=== PATIENT | male | born 1950 | race Caucasian/White ===

== ENCOUNTER 2017-12-22 12:04 | Inpatient (IN) | payer OTHER ==
[2017-12-22] MEDS ORDERED: fentaNYL 100 MCG/2 ML VIAL IVP STA (13:10)
--- NOTE | 2017-12-22 13:11 | XRAY Preliminary Report ---
Exam: XR ANKLE 3 VIEW LT IMPRESSION: 1. Trimalleolar fracture with 5 mm medial offset distal tibia relative to the talar dome. 2. Small ankle effusion. [facility] SITE ID: [id number]
--- NOTE | 2017-12-22 13:17 | XRAY Report ---
EXAM: LEFT ANKLE RADIOGRAPHY EXAM DATE: 12/22/2017 12:31 PM. CLINICAL HISTORY: Left ankle pain after fall today. COMPARISON: None. TECHNIQUE: 3 views. FINDINGS: Bones: Acute fracture coronal plane posterior tibial lip, 6 mm from the cortex. Acute transverse fracture medial malleolus, 12 mm inferior to the talar dome, 8 mm from the tip. Acute comminuted mildly displaced spiral fracture lateral malleolus, extending from the talar dome vasquez periorly by 4 cm. Suspect remote fracture in this region as well. Joints: Mild widening of the ankle mortise. Small effusion. 5 mm medial subluxation coronal plane distal tibia relative to the talar dome. Remote arthrodesis first MTP joint. Soft Tissues: Moderate diffuse edema. IMPRESSION: 1. Trimalleolar fracture with 5 mm medial offset distal tibia relative to the talar dome. 2. Small ankle effusion. [facility] Referring Provider Line: [phone] SITE ID: [id number]
--- NOTE | 2017-12-22 13:27 | ED Physician Documentation ---
PD HPI LOWER EXT INJURY - Stated complaint Stated Complaint: L ANKLE PX - Chief complaint Chief Complaint: Ext Problem - History obtained from History obtained from: Patient - History of Present Illness PD HPI LOW EXT INJURY LOCATION: Left, Ankle Type of injury: Twist Where injury occurred: Home Timing - onset: How many hours ago (2) Worsened by: Moving, Palpating Associated symptoms: Swelling Similar symptoms before: Has not had sx before - Additional information Additional information: The patient is a 67-year-old male who fell this morning when he had a "dizzy spell" twisting his left ankle. He denies any other injuries. He presents now with pain in his left ankle, with inability to bear weight. Past medical history significant for brain tumor resection in 2011. He believes that is the reason he sometimes has dizzy spells. He denies any chest pain, shortness of breath, headache, neck pain, or other injuries. He has not eaten since last night. He did drink a 10 ounce cooler after the falling episode this morning. Review of Systems Constitutional: denies: Fever Eyes: denies: Irritation Ears: denies: Tinnitus/ringing Nose: denies: Congestion Throat: denies: Sore throat Cardiac: denies: Chest pain / pressure Respiratory: denies: Dyspnea, Cough GI: denies: Abdominal Pain, Nausea, Vomiting : denies: Dysuria Skin: denies: Rash, Abrasion (s) Musculoskeletal: reports: Joint pain (left ankle). denies: Neck pain, Back pain Neurologic: denies: Focal weakness, Numbness, Head injury PD PAST MEDICAL HISTORY - Past Medical History Past Medical History: Yes Cardiovascular: Hypertension, High cholesterol Neuro: Peripheral neuropathy, Other GI: GERD HEENT: Chronic sinusitis Psych: Depression, Post traumatic stress disorder - Past Surgical History Past Surgical History: Yes Ortho: Rotator cuff repair Neuro: Other - Present Medications Home Medications: Ambulatory Orders Medication Instructions Recorded Confirmed Omeprazole [PriLOSEC] 20 mg PO QDAC 04/02/15 12/22/17 Prazosin [Minipress] 8 mg PO QPM 04/02/15 12/22/17 Quetiapine Fumarate 400 mg PO QPM 04/02/15 12/22/17 Sertraline HCl 200 mg PO DAILY 04/02/15 12/22/17 Gabapentin 900 mg PO TID 12/22/17 12/22/17 Multivitamin W/Minerals [Theragran 1 tab PO DAILY 12/22/17 12/22/17 M] Oxycodone HCl 5 mg PO Q4H PRN 12/22/17 12/22/17 Polyethylene Glycol 3350 [Miralax] 17 gm PO BID PRN 12/22/17 12/22/17 Propranolol HCl 20 mg PO TID PRN 12/22/17 12/22/17 Psyllium [Metamucil] 1 pkt PO DAILY 12/22/17 12/22/17 Simvastatin 20 mg PO QPM 12/22/17 12/22/17 Tamsulosin [Flomax] 0.4 mg PO QPM 12/22/17 12/22/17 - Allergies Allergies/Adverse Reactions: Allergies Allergy/AdvReac Type Severity Reaction Status Date / Time No Known Drug Allergies Allergy Verified 12/22/17 12:14 - Social History Does the pt smoke?: No Smoking Status: Never smoker Does the pt drink ETOH?: Yes Does the pt have substance abuse?: No - Immunizations Immunizations are current?: Yes - POLST Patient has POLST: No PD ED PE NORMAL - Vitals Vital signs reviewed: Yes (normal) - General General: Alert and oriented X 3, Well developed/nourished, Other (Overweight.) - HEENT HEENT: Atraumatic, Moist mucous membranes - Neck Neck: No bony TTP, No JVD - Cardiac Cardiac: RRR, No murmur - Respiratory Respiratory: No respiratory distress, Clear bilaterally, Other (No chest wall tenderness to palpation.) - Abdomen Abdomen: Soft, Non tender - Back Back: No CVA TTP, No spinal TTP - Derm Derm: No rash - Extremities Extremities: Other (There is swelling of the left ankle, with tenderness to palpation both medially and laterally. There is no calf tenderness to palpation. Distal neurovascular is intact.) - Neuro Neuro: Alert and oriented X 3, No motor deficit, No sensory deficit Results - Vitals Vitals: Vital Signs - 24 hr 12/22/17 12:10 Temperature 36.8 C Heart Rate 76 Respiratory 16 Rate Blood Pressure 102/61 O2 Saturation 95 Oxygen O2 Source Room air - Rads (name of study) left ankle Radiology: Prelim report reviewed, EMP read contemporaneously, See rad report ( Trimalleolar fracture with 5 mm medial offset distal tibia relative to the talar dome. Small ankle effusion.) Procedures - Splint (location) left ankle Splint applied by: Physician Type of splint: Fiberglass, Short leg, Posterior, Stirrup Other: Patient tolerated well, No complications, Neurovascular intact PD MEDICAL DECISION MAKING - ED course Complexity details: reviewed results, re-evaluated patient, considered differential, d/w patient, d/w family, d/w salesforce consultant ED course: The patient's presentation is significant for trimalleolar fracture of the left ankle. There is about 5 mm medial displacement of the distal tibia relative to the talar dome. Treatment in the emergency department included administration of fentanyl 50 mg IV. Posterior and sugar tong short leg splint was applied. I discussed his condition with Dr. Acosta, the Orthopedist, who plans operative intervention. She asked that the Hospitalist admit the patient. I discussed his condition with Dr. Barnes who accepts. - Sepsis Event Vital Signs: Vital Signs - 24 hr 12/22/17 12:10 Temperature 36.8 C Heart Rate 76 Respiratory 16 Rate Blood Pressure 102/61 O2 Saturation 95 Oxygen O2 Source Room air Departure - Departure Disposition: [facility] DC/Xfer Clinical Impression: Left trimalleolar fracture Condition: Stable Discharge Date/Time: 12/22/17 14:49
[2017-12-22] MEDS ORDERED: PROCHLORPERAZINE 10 MG/2 ML VIAL IVP PRN (13:49)
[2017-12-22] MEDS ORDERED: PROPRANOLOL 10 MG TABLET PO PRN ×2 (14:00→15:30)
--- NOTE | 2017-12-22 14:57 | HISTORY & PHYSICAL EXAMINATION ---
Chief Complaint - Chief Complaint Chief Complaint: Left ankle pain History of Present Illness - Admitted From Admitted From:: Home - History Obtained From History obtained from: Patient, ED Physician - History of Present Illness HPI Comment/Other: Mr. 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 Since that time he has had episodes of syncope once or twice a year. Today the patient was walking through a doorway when he lost consciousness and fell, catching his foot in the doorway. When he woke up he realized that his foot was in a lot of pain and appeared to be deformed. He came to the emergency department where he was diagnosed with a left malleolar fracture. He will be admitted to medical surgical bed in anticipation of orthopedic surgery with Dr. Acosta tomorrow. History - Past Medical History Cardiovascular: reports: Hypertension, High cholesterol Neuro: reports: Peripheral neuropathy, Other GI: reports: GERD HEENT: reports: Chronic sinusitis Psych: reports: Depression, Post traumatic stress disorder MRSA Hx?: No - Past Surgical History Ortho: reports: Rotator cuff repair Neuro: reports: Other (Patient underwent resection of a nonmalignant brain tumor in 2011. He has had episodes of syncope once or twice a year since then.) - Family & Social History Family History: Mother: (Father at age 94 following a fall in which she sustained a head injury), Cancer (Mother from pancreatic cancer) , Father: , Brother: Alive and Well (One brother with morbid obesity approximately 600 pounds) Family History Comment/Other: The patient's sister has chronic back pain Living arrangement: At home Living Situation: With spouse/s.o. - Substance History Use: Uses substance without health or social issues: Alcohol, Cannabis Abuse: Recurrent use of substance despite neg consequences: NONE Dependence: Experiences withdrawal or developed tolerances: NONE - POLST Patient has POLST: No POLST Status: Full Code Meds/Allgy - Home Medications Home Medications: Ambulatory Orders Medication Instructions Recorded Confirmed Omeprazole [PriLOSEC] 20 mg PO QDAC 04/02/15 12/22/17 Prazosin [Minipress] 8 mg PO QPM 04/02/15 12/22/17 Quetiapine Fumarate 400 mg PO QPM 04/02/15 12/22/17 Sertraline HCl 200 mg PO DAILY 04/02/15 12/22/17 Gabapentin 900 mg PO TID 12/22/17 12/22/17 Multivitamin W/Minerals [Theragran 1 tab PO DAILY 12/22/17 12/22/17 M] Oxycodone HCl 5 mg PO Q4H PRN 12/22/17 12/22/17 Polyethylene Glycol 3350 [Miralax] 17 gm PO BID PRN 12/22/17 12/22/17 Propranolol HCl 20 mg PO TID PRN 12/22/17 12/22/17 Psyllium [Metamucil] 1 pkt PO DAILY 12/22/17 12/22/17 Simvastatin 20 mg PO QPM 12/22/17 12/22/17 Tamsulosin [Flomax] 0.4 mg PO QPM 12/22/17 12/22/17 - Allergies Allergies/Adverse Reactions: Allergies Allergy/AdvReac Type Severity Reaction Status Date / Time No Known Drug Allergies Allergy Verified 12/22/17 12:14 Review of Systems - Constitutional Constitutional: denies: Fatigue, Fever, Chills, Malaise, Night sweats - Eyes Eyes: denies: Pain, Irritation, Amaurosis, Blurred vision, Field loss, Vision loss, Dipolpia - Ears, Nose & Throat Ears, Nose & Throat: denies: Ear pain, Tinnitus, Vertigo, Nasal pain, Nasal discharge, Nosebleeds - Cardiovascular Cariovascular: denies: Irregular heart rate, Palpitations, Chest pain, Edema, Syncope - Respiratory Respiratory: denies: Cough, Sputum production, Wheezing, Snoring, Hemoptysis, Orthopnea, SOB at rest, SOB with exertion - Gastrointestinal Gastrointestinal: denies: Abdominal pain, Abdominal distention, Constipation, Diarrhea, Rectal bleeding, Nausea, Vomiting - Genitourinary Genitourinary: denies: Dysuria, Frequency, Urgency, Hematuria - Musculoskeletal Musculoskeletal: reports: Limited range of motion, Joint swelling, Other (Left malleolar fracture). denies: Muscle pain, Back pain, Muscle aches - Integumentary Integumentary: denies: Rash, Pruritis, Lesions, Dryness - Neurological Neurological: denies: General weakness, Focal weakness, Headache, Dizziness - Psychiatric Psychiatric: denies: Depression, Anxiety, Suicidal, Hallucinations - Endocrine Endocrine: denies: Polyuria, Polydypsia, Polyphagia - Hematologic/Lymphatic Hematologic/Lymphatic: denies: Anemia, Bruising, Petechiae, Blood clots, Lymphadenopathy - All Other Systems All Other Systems: reports: Reviewed and negative Exam - Vital Signs Reviewed Vital Signs: Yes Vital Signs: Vital Signs x48h Temp Pulse Resp BP Pulse Ox 12/22/17 12:10 36.8 C 76 16 102/61 95 - Physical Exam General Appearance: positive: No acute distress, Alert Eyes Bilateral: positive: Normal inspection, PERRL, EOMI, No lid inflammation, Conjunctivae nml, No scleral icterus ENT: positive: ENT inspection nml, Pharynx nml, No signs of dehydration Neck: positive: Nml inspection, Thyroid nml, No JVD, Trachea midline. negative : Thyromegaly Respiratory: positive: Chest non-tender, No respiratory distress, Breath sounds nml. negative: Wheezes, Rales, Rhonchi Cardiovascular: positive: Regular rate & rhythm, No murmur, No gallop Peripheral Pulses: positive: 1+ Abdomen: positive: Non-tender, No organomegaly, Nml bowel sounds, No distention. negative: Tenderness, Guarding, Rebound Back: positive: Nml inspection. negative: CVA tenderness (R), CVA tenderness (L ) Skin: positive: Color nml, No rash, Warm, Dry. negative: Cyanosis Extremities: positive: Non-tender, Full ROM, Nml appearance Neurologic/Psychiatric: positive: Oriented x3, CN's nml (2-12), Motor nml, Sensation nml, Mood/affect nml Conclusion/Plan - Problem List (1) Left trimalleolar fracture Conclusion/Plan: The patient will be admitted to medical surgical bed, given pain medicine and IV fluids, and I will place him on a clear liquid diet until midnight. He will be n.p.o. after midnight in anticipation of surgery with Dr. Acosta tomorrow. Revised cardiac risk index for this patient is 0.4% risk of major cardiac event (2) Post traumatic stress disorder (PTSD) Conclusion/Plan: Apparently severe, we will continue the patient on gabapentin, propanolol, Seroquel, and Zoloft. (3) Hypercholesterolemia Conclusion/Plan: We will continue the patient on simvastatin (4) GERD (gastroesophageal reflux disease) Conclusion/Plan: We will continue the patient on omeprazole (6) Chronic pain Conclusion/Plan: We will continue the patient on gabapentin and oxycodone as needed. (7) Benign prostatic hyperplasia Conclusion/Plan: We will continue the patient on tamsulosin. - Lab Results Lab results reviewed: Yes - Diagnostic Imaging Results Diagnostic Imaging Results: positive: Final report reviewed Diagnostic Imaging Results Comments: EXAM: LEFT ANKLE RADIOGRAPHY EXAM DATE: 12/22/2017 12:31 PM. CLINICAL HISTORY: Left ankle pain after fall today. COMPARISON: None. TECHNIQUE: 3 views. FINDINGS: Bones: Acute fracture coronal plane posterior tibial lip, 6 mm from the cortex. Acute transverse fracture medial malleolus, 12 mm inferior to the talar dome, 8 mm from the tip. Acute comminuted mildly displaced spiral fracture lateral malleolus, extending from the talar dome superiorly by 4 cm. Suspect remote fracture in this region as well. Joints: Mild widening of the ankle mortise. Small effusion. 5 mm medial subluxation coronal plane distal tibia relative to the talar dome. Remote arthrodesis first MTP joint. Soft Tissues: Moderate diffuse edema. IMPRESSION: 1. Trimalleolar fracture with 5 mm medial offset distal tibia relative to the talar dome. 2. Small ankle effusion. EXAM: LEFT KNEE CT WITHOUT CONTRAST EXAM DATE: 12/22/2017 02:55 PM. CLINICAL HISTORY: Trimalleolar fracture left ankle. COMPARISON: 12/22/2017. TECHNIQUE: Thin-section axial images were acquired of the knee without contrast. Post-processing: Coronal and sagittal reformats. Other: None. In accordance with CT protocol optimization, one or more of the following dose reduction techniques were utilized for this exam: automated exposure control, adjustment of mA and/or KV based on patient size, or use of iterative reconstructive technique. FINDINGS: Bones: There is an oblique fracture of the fibula extending to the distal radioulnar joint. There is minimal lateral displacement of the distal fracture fragment. There is a minimally displaced transverse fracture of the medial malleolus with intraarticular extension. There are fractures of the lateral margins of the tibial plafond, anteriorly and posteriorly at the attachments of the anterior and posterior tibiofibular ligaments. The findings are consistent with avulsion injuries with intraarticular extensions. These create 3 mm gap deformities in the articular surface. There is mild lateral subluxation of the talus. There is a comminuted minimally displaced fracture of the base of the second metatarsal. There is an avulsion fracture between the base of the second metatarsal and the first tarsometatarsal joint, suggesting avulsion of the Lisfranc ligament. There is a smaller avulsion fracture of the medial aspect of the base of the fourth metatarsal. Joints: Hemarthrosis of the ankle. Musculature: Normal. No fatty atrophy. Other: Soft tissue swelling of the midfoot and hindfoot. IMPRESSION: 1. Fractures of the medial and lateral malleoli with intraarticular extension. Fractures of the anterior and posterior margins of the tibial plafond with intraarticular extension at the attachment points of the anterior and posterior tibiofibular ligaments. 2. Fracture of the base of the second metatarsal with an avulsion injury at the Lisfranc ligament attachment. 3. Avulsion injury of the medial margin of the fourth metatarsal base. Core Measures - Anticipated LOS I expect patient to be DC'd or transferred within 96 hours.: Yes - DVT/VTE - Prophylaxis VTE/DVT Device ordered at admit?: Yes
--- NOTE | 2017-12-22 15:14 | CT Preliminary Report ---
Exam: CT LOWER EXTREMITY LEFT W/O IMPRESSION: 1. Fractures of the medial and lateral malleoli with intra-articular extension. Fractures of the ante rior and posterior margins of the tibial plafond with intra-articular extension at the attachment poi nts of the anterior and posterior tibiofibular ligaments. 2. Fracture of the base of the second metatarsal with an avulsion injury at the Lisfranc ligament att achment. 3. Avulsion injury of the medial margin of the fourth metatarsal base. [facility] SITE ID: [id number]
--- NOTE | 2017-12-22 15:19 | CT Report ---
EXAM: LEFT KNEE CT WITHOUT CONTRAST EXAM DATE: 12/22/2017 02:55 PM. CLINICAL HISTORY: Trimalleolar fracture left ankle. COMPARISON: 12/22/2017. TECHNIQUE: Thin-section axial images were acquired of the knee without contrast. Post-processing: Cor onal and sagittal reformats. Other: None. In accordance with CT protocol optimization, one or more of the following dose reduction techniques w ere utilized for this exam: automated exposure control, adjustment of mA and/or KV based on patient s ize, or use of iterative reconstructive technique. FINDINGS: Bones: There is an oblique fracture of the fibula extending to the distal radioulnar joint. There is minimal lateral displacement of the distal fracture fragment. There is a minimally displaced transver se fracture of the medial malleolus with intraarticular extension. There are fractures of the lateral margins of the tibial plafond, anteriorly and posteriorly at the attachments of the anterior and pos terior tibiofibular ligaments. The findings are consistent with avulsion injuries with intraarticular extensions. These create 3 mm gap deformities in the articular surface. There is mild lateral subluxation of the talus. There is a comminuted minimally displaced fracture of the base of the second metatarsal. There is an avulsion fracture between the base of the second metatarsal and the first tarsometatarsal joint, sugg esting avulsion of the Lisfranc ligament. There is a smaller avulsion fracture of the medial aspect o f the base of the fourth metatarsal. Joints: Hemarthrosis of the ankle. Musculature: Normal. No fatty atrophy. Other: Soft tissue swelling of the midfoot and hindfoot. IMPRESSION: 1. Fractures of the medial and lateral malleoli with intraarticular extension. Fractures of the anter ior and posterior margins of the tibial plafond with intraarticular extension at the attachment point s of the anterior and posterior tibiofibular ligaments. 2. Fracture of the base of the second metatarsal with an avulsion injury at the Lisfranc ligament att achment. 3. Avulsion injury of the medial margin of the fourth metatarsal base. [facility] Referring Provider Line: [phone] SITE ID: [id number]
[2017-12-22] MEDS: MORPHINE 2 MG/ML SYRINGE IVP PRN ×3 (15:21→22:54)
[2017-12-22] MEDS: D5.45NS W/20 MEQ KCL 1,000 ML IV SCH (15:21)
[2017-12-22] MEDS: SODIUM CHLORIDE FLUSH 0.9% 10 ML SYRINGE IVP SCH (15:21)
[2017-12-22] MEDS ORDERED: POLYETHYLENE GLYCOL 3350 17 GM PACKET PO PRN (15:30)
[2017-12-22] MEDS ORDERED: oxyCODONE 5 MG TABLET PO PRN (15:30)
[2017-12-22 15:59] LABS: HGB - HEMOGLOBIN 13.1 g/dL (14.0-18.0); MEAN CORPUSCULAR HEMOGLOBIN 30.4 pg (27.0-31.0); MEAN CORPUSCULAR HGB CONC 33.1 g/dL (32.0-36.0); MEAN CORPUSCULAR VOLUME 91.8 fL (80.0-94.0); RED BLOOD COUNT 4.3 10^6/uL (4.70-6.10); RED CELL DISTRIBUTION WIDTH 14.3 % (12.0-15.0); WHITE BLOOD COUNT 7.4 x10^3/uL (4.8-10.8)
[2017-12-22 16:01] LABS: PT - PROTHROMBIN TIME 11.6 secs (9.9-12.6)
[2017-12-22 16:03] LABS: CALCIUM 8.7 mg/dL (8.5-10.3); CREATININE 1.3 mg/dL (0.6-1.2)
[2017-12-22] MEDS: oxyCODONE 5 MG TABLET PO PRN ×2 (17:13→21:54)
--- NOTE | 2017-12-22 19:26 | CONSULTATION NOTE ---
Referring Provider Name of Referring Provider:: week Chief Complaint - Chief Complaint Chief Complaint: trimalleolar ankle fracture left History of Present Illness - Admitted From Admitted From:: er - History of Present Illness HPI Comment/Other: 67 year old male fell and sustained a fracture of his left ankle. Presented to the ER with a trimalleolar ankle fracture. Past history significant for blackouts. History - Past Medical History Cardiovascular: reports: Hypertension, High cholesterol Neuro: reports: Peripheral neuropathy, Other GI: reports: GERD HEENT: reports: Chronic sinusitis Psych: reports: Depression, Post traumatic stress disorder MRSA Hx?: No - Past Surgical History Ortho: reports: Rotator cuff repair Neuro: reports: Other HEENT: reports: Other - Family & Social History Family History: Mother: (Father at age 94 following a fall in which she sustained a head injury), Cancer (Mother from pancreatic cancer) , Father: , Brother: Alive and Well (One brother with morbid obesity approximately 600 pounds) Family History Comment/Other: The patient's sister has chronic back pain Living arrangement: At home Living Situation: With spouse/s.o. - Substance History Use: Uses substance without health or social issues: Alcohol, Cannabis Abuse: Recurrent use of substance despite neg consequences: NONE Dependence: Experiences withdrawal or developed tolerances: NONE - POLST Patient has POLST: No POLST Status: Full Code Meds/Allgy - Home Medications Home Medications: Ambulatory Orders Medication Instructions Recorded Confirmed Omeprazole [PriLOSEC] 20 mg PO QDAC 04/02/15 12/22/17 Prazosin [Minipress] 8 mg PO QPM 04/02/15 12/22/17 Quetiapine Fumarate 400 mg PO QPM 04/02/15 12/22/17 Sertraline HCl 200 mg PO DAILY 04/02/15 12/22/17 Gabapentin 900 mg PO TID 12/22/17 12/22/17 Multivitamin W/Minerals [Theragran 1 tab PO DAILY 12/22/17 12/22/17 M] Oxycodone HCl 5 mg PO Q4H PRN 12/22/17 12/22/17 Polyethylene Glycol 3350 [Miralax] 17 gm PO BID PRN 12/22/17 12/22/17 Propranolol HCl 20 mg PO TID PRN 12/22/17 12/22/17 Psyllium [Metamucil] 1 pkt PO DAILY 12/22/17 12/22/17 Simvastatin 20 mg PO QPM 12/22/17 12/22/17 Tamsulosin [Flomax] 0.4 mg PO QPM 12/22/17 12/22/17 - Allergies Allergies/Adverse Reactions: Allergies Allergy/AdvReac Type Severity Reaction Status Date / Time No Known Drug Allergies Allergy Verified 12/22/17 12:14 Exam - Vital Signs Vital Signs: Vital Signs x48h Temp Pulse Pulse Resp BP BP Pulse Ox 12/22/17 16:17 36.5 C 58 L 16 101/59 L 94 12/22/17 15:02 36.5 C 61 14 94/60 94 12/22/17 14:36 36.9 C 67 17 99/65 93 - Physical Exam Peripheral Pulses: positive: Other (Good capillary refill) Extremities: positive: Other (In a bulky splint. Toes pink. Capillary refill normal. Sensory exam normal.) Conclusion/Plan - Diagnosis Diagnosis: Trimalleolar ankle fracture left - Plan Plan: We plan to apply an external fixator and let the soft tissue envelope mature. I have explained the risks involved in the procedure and the procedure itself. The patient understands that after the swelling goes down he may need internal fixation. Surgery is planned for in the am. - Lab Results Lab results reviewed: Yes Fish Bones: 12/22/17 15:43 12/22/17 15:43 - Diagnostic Imaging Results Diagnostic Imaging Results: positive: Read independently (Trimalleolar ankle fracture closed left)
[2017-12-22] MEDS: ATORVASTATIN 10 MG TABLET PO SCH (20:26)
[2017-12-22] MEDS: QUEtiapine 100 MG TABLET PO SCH (20:26)
[2017-12-22] MEDS: TAMSULOSIN 0.4 MG CAPSULE PO SCH (20:26)
[2017-12-22] MEDS: PRAZOSIN 1 MG CAPSULE PO SCH (20:26)
[2017-12-22] MEDS: TEMAZEPAM 15 MG CAPSULE PO PRN (20:26)
[2017-12-22] MEDS ORDERED: TAMSULOSIN 0.4 MG CAPSULE PO SCH (21:00)
[2017-12-22] MEDS ORDERED: ATORVASTATIN 10 MG TABLET PO SCH (21:00)
[2017-12-22] MEDS: GABAPENTIN 300 MG CAPSULE PO SCH (21:55)
[2017-12-23] MEDS: MORPHINE 2 MG/ML SYRINGE IVP PRN ×6 (00:43→20:54)
[2017-12-23] MEDS: SODIUM CHLORIDE FLUSH 0.9% 10 ML SYRINGE IVP SCH ×4 (00:43→23:47)
[2017-12-23] MEDS: D5.45NS W/20 MEQ KCL 1,000 ML IV SCH ×3 (01:25→23:46)
[2017-12-23] MEDS: ACETAMINOPHEN 325 MG TABLET PO PRN (01:25)
[2017-12-23] MEDS: oxyCODONE 5 MG TABLET PO PRN ×6 (02:27→23:46)
[2017-12-23] MEDS: SODIUM CHLORIDE FLUSH 0.9% 10 ML SYRINGE IVP PRN (04:13)
[2017-12-23 05:33] LABS: MEAN CORPUSCULAR HEMOGLOBIN 31.4 pg (27.0-31.0); MEAN CORPUSCULAR HGB CONC 33.5 g/dL (32.0-36.0); MEAN CORPUSCULAR VOLUME 93.6 fL (80.0-94.0); MEAN PLATELET VOLUME 7.6 fL (7.4-11.4); RED BLOOD COUNT 3.81 10^6/uL (4.70-6.10); RED CELL DISTRIBUTION WIDTH 14.3 % (12.0-15.0)
[2017-12-23 05:38] LABS: CALCIUM 8.3 mg/dL (8.5-10.3); CREATININE 1.3 mg/dL (0.6-1.2)
[2017-12-23] MEDS: PANTOPRAZOLE 40 MG TABLET PO SCH (06:36)
[2017-12-23] MEDS: GABAPENTIN 300 MG CAPSULE PO SCH ×3 (06:36→20:54)
[2017-12-23] MEDS: MULTIVITAMIN W/MINERALS TABLET PO SCH (07:18)
[2017-12-23] MEDS: PSYLLIUM PACKET PO SCH (07:18)
[2017-12-23] MEDS: SERTRALINE 50 MG TABLET PO SCH (08:41)
[2017-12-23] MEDS ORDERED: POLYETHYLENE GLYCOL 3350 17 GM PACKET PO SCH (09:00)
[2017-12-23] MEDS ORDERED: LACTATED RINGERS 1,000 ML IV ONE ×2 (09:11→10:00)
[2017-12-23] MEDS ORDERED: PHENYLEPHRINE 50 MG/5 ML VIAL IV ONE (10:00)
[2017-12-23] MEDS ORDERED: ONDANSETRON 4 MG/2 ML VIAL IVP ONE (10:00)
[2017-12-23] MEDS ORDERED: fentaNYL 250 MCG/5 ML VIAL IVP ONE (10:00)
[2017-12-23] MEDS ORDERED: ceFAZolin 1 GM VIAL IV ONE (10:00)
[2017-12-23] MEDS ORDERED: MIDAZOLAM 2 MG/2 ML VIAL IVP ONE (10:00)
[2017-12-23] MEDS ORDERED: GLYCOPYRROLATE 1 MG/5 ML VIAL IVP ONE (10:00)
[2017-12-23] MEDS ORDERED: ePHEDrine 50 MG/ML VIAL IVP ONE (10:00)
[2017-12-23] MEDS ORDERED: SUCCINYLCHOLINE 200 MG/10 ML VIAL IVP ONE (10:00)
[2017-12-23] MEDS ORDERED: PROPOFOL 200 MG/20 ML VIAL IVP ONE (10:00)
--- NOTE | 2017-12-23 10:49 | OPERATIVE REPORT ---
Operative Report - General Admit Date: 12/22/17 Procedure Date: 12/23/17 Planned Procedure: Application of external fixator left leg Pre-Op Diagnosis: Pilon fracture left ankle Procedure Performed: Preop dx: Pilon fracture left ankle Post op krista: Pilon fracture left ankle Procedure: Application of external fixator left ankle Surgeon: Dave [employer] Sales Representative : None Drains: None EBL 5 cc Anesthesia General Complications: None Operative procedure in detail: The patient was taken to the operating room and positioned in the supine position. After general anesthesia was induced his leg was prepped and draped in the usual sterile fashion. The components of the fixator were assembled. Two pins were inserted into the crest of the tibia and the fixator was assembled. The heel pin was then drilled through the patients heel. The fixator was assembled using the pin to bar clickers and the kickstand was then put into place to protect the patient's heel. There was a small fracture blister over the anterior aspect of the patient's ankle. A sterile dressing was put into place after the flouro showed anatomic alignment of the fracture fragments. The patient was then awakened and returned to the in stable condition. At the end of the procedure all sponge and needle counts were correct x 2. There were no complications. - Procedure Note Primary Surgeon: Dave Anesthesia Technique: General ET tube IV Fluids (mL): 500 Estimated Blood Loss (mL): 5 Urine Output (mL): 200 Complications: none
[2017-12-23] MEDS ORDERED: FAMOTIDINE 20 MG/50 ML 50 ML IV ONE (10:52)
--- NOTE | 2017-12-23 11:25 | XRAY Preliminary Report ---
Exam: XR ANKLE 2 VIEW LT IMPRESSION: 3 digital spot films/films for intraoperative guidance of ankle fixation. For further dis cussion please see operative report. [facility] SITE ID: [id number]
--- NOTE | 2017-12-23 11:25 | XRAY Report ---
EXAM: LEFT ANKLE RADIOGRAPHY EXAM DATE: 12/23/2017 10:57 AM. CLINICAL HISTORY: ORIF LEFT ANKLE. COMPARISON: 12/22/2017. TECHNIQUE: 3 views. FINDINGS: Distal fibular metadiaphyseal fracture and inferior malleoli or fracture. Posterior malleolar fractur e seen on prior exam not well-visualized on current spot films. 3 digital spot films are submitted from intraoperative assessment for ORIF. Screws for external fixat ion are seen in lower leg and tarsal region. IMPRESSION: 3 digital spot films/films for intraoperative guidance of ankle fixation. For further dis cussion please see operative report. [facility] Referring Provider Line: [phone] SITE ID: [id number]
[2017-12-23] MEDS ORDERED: GABAPENTIN 300 MG CAPSULE PO SCH (14:00)
--- NOTE | 2017-12-23 18:42 | PROVIDER PROGRESS NOTE ---
Subjective - Prog Note Date Prog Note Date: 12/23/17 Prog Note Time: 14:00 - Subjective Pt reports feeling: Improved (The patient's pain is well-managed at this time and he denies any new problems. He had surgery earlier today and has an external fixation device on his left lower extremity. No fevers, chills, shortness of breath, or chest pain.) Current Medications - Current Medications Current Medications: Active Medications Generic Name Dose Route Start Last Admin Trade Name Freq PRN Reason Stop Dose Admin Acetaminophen 650 mg 12/22/17 13:49 12/23/17 01:25 Tylenol PO 650 mg Q4HR PRN Administration Pain 1 to 4 Atorvastatin Calcium 10 mg 12/22/17 21:00 12/22/17 20:26 Lipitor PO 10 mg QPM FOZIA Administration Gabapentin 900 mg 12/22/17 22:00 12/23/17 14:02 Neurontin PO 900 mg TID FOZIA Administration Potassium Chloride/Dextrose/Sod Cl 1,000 mls @ 100 mls/hr 12/22/17 14:00 04/03 14:03 D5.45ns W/20 Meq Kcl IV 100 mls/hr .Q10H FOZIA Administration Morphine Sulfate 2 mg 12/22/17 13:49 12/23/17 14:02 Morphine IVP 2 mg Q2H PRN Administration Pain 8 to 10 Multivitamins/Minerals 1 tab 12/23/17 09:00 12/23/17 07:18 Theragran M PO Not Given DAILY FOZIA Oxycodone HCl 5 mg 12/22/17 13:49 12/23/17 17:39 Roxicodone PO 5 mg Q4HR PRN Administration Pain 5 to 7 Pantoprazole Sodium 40 mg 12/23/17 07:00 12/23/17 06:36 Protonix PO 40 mg QDAC FOZIA Administration Polyethylene Glycol 17 gm 12/22/17 15:30 Miralax PO BID PRN Constipation Prazosin HCl 8 mg 12/22/17 21:00 12/22/17 20:26 Minipress PO 8 mg QPM FOZIA Administration Prochlorperazine Edisylate 10 mg 12/22/17 13:49 Compazine Inj IVP Q6HR PRN Nausea / Vomiting Propranolol HCl 20 mg 12/22/17 15:30 Inderal PO TID PRN Anxiety Psyllium Hydrophilic Mucilloid 1 packet 12/23/17 09:00 12/23/17 07:18 Metamucil PO Not Given DAILY FOZIA Quetiapine Fumarate 400 mg 12/22/17 21:00 12/22/17 20:26 Seroquel PO 400 mg QPM FOZIA Administration Sertraline HCl 200 mg 12/23/17 09:00 12/23/17 08:41 Zoloft PO 200 mg DAILY FOZIA Administration Sodium Chloride 10 ml 12/22/17 13:49 12/23/17 04:13 Normal Saline Flush 0.9% IVP 10 ml PRN PRN Administration NEEDED PER PROVIDER ORDERS Sodium Chloride 10 ml 12/22/17 17:00 12/23/17 15:46 Normal Saline Flush 0.9% IVP Not Given 0100,0900,1700 FOZIA Tamsulosin HCl 0.4 mg 12/22/17 21:00 12/22/17 20:26 Flomax PO 0.4 mg QPM FOZIA Administration Temazepam 15 mg 12/22/17 13:49 12/22/17 20:26 Restoril PO 15 mg QPM PRN Administration Insomnia Omeprazole [PriLOSEC] 20 mg PO QDAC 04/02/15 Prazosin [Minipress] 8 mg PO QPM 04/02/15 Quetiapine Fumarate 400 mg PO QPM 04/02/15 Sertraline HCl 200 mg PO DAILY 04/02/15 Gabapentin 900 mg PO TID 12/22/17 Multivitamin W/Minerals [Theragran M] 1 tab PO DAILY 12/22/17 Oxycodone HCl 5 mg PO Q4H PRN 12/22/17 Polyethylene Glycol 3350 [Miralax] 17 gm PO BID PRN 12/22/17 Propranolol HCl 20 mg PO TID PRN 12/22/17 Psyllium [Metamucil] 1 pkt PO DAILY 12/22/17 Simvastatin 20 mg PO QPM 12/22/17 Tamsulosin [Flomax] 0.4 mg PO QPM 12/22/17 Objective - Vital Signs/Intake & Output Reviewed Vital Signs: Yes Vital Signs: Vital Signs x48h Temp Pulse Resp BP Pulse Ox 12/23/17 17:32 36.8 C 84 16 119/68 95 12/23/17 15:39 36.4 C L 72 16 114/63 94 12/23/17 14:09 36.5 C 73 16 109/59 L 95 12/23/17 13:05 35.6 C L 79 16 106/65 93 12/23/17 12:09 36.1 C L 78 18 111/67 93 12/23/17 11:39 36.2 C L 81 16 104/69 94 12/23/17 11:15 94 12/23/17 11:05 95 12/23/17 11:00 96 12/23/17 10:55 95 12/23/17 10:50 95 12/23/17 10:45 96 Intake & Output: Intake & Output 12/20/17 12/21/17 12/22/17 12/23/17 23:59 23:59 23:59 23:59 Intake Total 260 2088.333 Output Total 250 Balance 10 8.333 - Objective General Appearance: positive: No acute distress, Alert Eyes Bilateral: positive: Normal inspection, PERRL, EOMI, No lid inflammation, Conjunctivae nml, No scleral icterus ENT: positive: ENT inspection nml, Pharynx nml, No signs of dehydration Neck: positive: Nml inspection, Thyroid nml, No JVD, Trachea midline. negative : Thyromegaly Respiratory: positive: Chest non-tender, No respiratory distress, Breath sounds nml. negative: Wheezes, Rales, Rhonchi Cardiovascular: positive: Regular rate & rhythm, No murmur, No gallop Abdomen: positive: Non-tender, No organomegaly, Nml bowel sounds, No distention. negative: Guarding, Rebound Back: positive: Nml inspection. negative: CVA tenderness (R), CVA tenderness (L ) Skin: positive: Color nml, No rash, Warm, Dry. negative: Cyanosis Extremities: positive: Non-tender, Pedal edema, Joint swelling, Other (Patient is status post surgical repair of left trimalleolar fracture. He has an external fixation device in place at this time.). negative: Full ROM Neurologic/Psychiatric: positive: Oriented x3, CN's nml (2-12), Motor nml, Sensation nml, Mood/affect nml - Lab Results Fish Bones: 12/23/17 05:08 12/23/17 05:08 Other Labs: Lab Results x24hrs 12/23/17 12/23/17 Range/Units 05:08 05:08 WBC 6.0 (4.8-10.8) x10^3/uL RBC 3.81 L (4.70-6.10) 10^6/uL Hgb 12.0 L (14.0-18.0) g/dL Hct 35.7 L (42.0-52.0) % MCV 93.6 (80.0-94.0) fL MCH 31.4 H (27.0-31.0) pg MCHC 33.5 (32.0-36.0) g/dL RDW 14.3 (12.0-15.0) % Plt Count 164 (130-450) 10^3/uL MPV 7.6 (7.4-11.4) fL Sodium 136 (135-145) mmol/L Potassium 4.2 (3.5-5.0) mmol/L Chloride 101 (101-111) mmol/L Carbon Dioxide 28 (21-32) mmol/L Anion Gap 7.0 (6-13) BUN 19 (6-20) mg/dL Creatinine 1.3 H (0.6-1.2) mg/dL Estimated GFR (MDRD) 55 L (>89) Glucose 117 H (70-100) mg/dL Calcium 8.3 L (8.5-10.3) mg/dL - Diagnostic Imaging Diagnostic Imaging Results: positive: Final report reviewed Diagnostic Imaging Comments: EXAM: LEFT ANKLE RADIOGRAPHY EXAM DATE: 12/22/2017 12:31 PM. CLINICAL HISTORY: Left ankle pain after fall today. COMPARISON: None. TECHNIQUE: 3 views. FINDINGS: Bones: Acute fracture coronal plane posterior tibial lip, 6 mm from the cortex. Acute transverse fracture medial malleolus, 12 mm inferior to the talar dome, 8 mm from the tip. Acute comminuted mildly displaced spiral fracture lateral malleolus, extending from the talar dome superiorly by 4 cm. Suspect remote fracture in this region as well. Joints: Mild widening of the ankle mortise. Small effusion. 5 mm medial subluxation coronal plane distal tibia relative to the talar dome. Remote arthrodesis first MTP joint. Soft Tissues: Moderate diffuse edema. IMPRESSION: 1. Trimalleolar fracture with 5 mm medial offset distal tibia relative to the talar dome. 2. Small ankle effusion. EXAM: LEFT KNEE CT WITHOUT CONTRAST EXAM DATE: 12/22/2017 02:55 PM. CLINICAL HISTORY: Trimalleolar fracture left ankle. COMPARISON: 12/22/2017. TECHNIQUE: Thin-section axial images were acquired of the knee without contrast. Post-processing: Coronal and sagittal reformats. Other: None. In accordance with CT protocol optimization, one or more of the following dose reduction techniques were utilized for this exam: automated exposure control, adjustment of mA and/or KV based on patient size, or use of iterative reconstructive technique. FINDINGS: Bones: There is an oblique fracture of the fibula extending to the distal radioulnar joint. There is minimal lateral displacement of the distal fracture fragment. There is a minimally displaced transverse fracture of the medial malleolus with intraarticular extension. There are fractures of the lateral margins of the tibial plafond, anteriorly and posteriorly at the attachments of the anterior and posterior tibiofibular ligaments. The findings are consistent with avulsion injuries with intraarticular extensions. These create 3 mm gap deformities in the articular surface. There is mild lateral subluxation of the talus. There is a comminuted minimally displaced fracture of the base of the second metatarsal. There is an avulsion fracture between the base of the second metatarsal and the first tarsometatarsal joint, suggesting avulsion of the Lisfranc ligament. There is a smaller avulsion fracture of the medial aspect of the base of the fourth metatarsal. Joints: Hemarthrosis of the ankle. Musculature: Normal. No fatty atrophy. Other: Soft tissue swelling of the midfoot and hindfoot. IMPRESSION: 1. Fractures of the medial and lateral malleoli with intraarticular extension. Fractures of the anterior and posterior margins of the tibial plafond with intraarticular extension at the attachment points of the anterior and posterior tibiofibular ligaments. 2. Fracture of the base of the second metatarsal with an avulsion injury at the Lisfranc ligament attachment. 3. Avulsion injury of the medial margin of the fourth metatarsal base. EXAM: LEFT ANKLE RADIOGRAPHY EXAM DATE: 12/23/2017 10:57 AM. CLINICAL HISTORY: ORIF LEFT ANKLE. COMPARISON: 12/22/2017. TECHNIQUE: 3 views. FINDINGS: Distal fibular metadiaphyseal fracture and inferior malleoli or fracture. Posterior malleolar fracture seen on prior exam not well-visualized on current spot films. 3 digital spot films are submitted from intraoperative assessment for ORIF. Screws for external fixation are seen in lower leg and tarsal region. IMPRESSION: 3 digital spot films/films for intraoperative guidance of ankle fixation. For further discussion please see operative report. - Other Results/Comments Other Results/Comments: Surgery Operative Report Patient Name: MALAIKA ROMAN Date of : 1950 Patient Status: Inpatient Attending Provider: Breanna Barnes Date: 12/23/17 10:43 Initialization Date: 12/23/17 10:43 Operative Report - General Admit Date: 12/22/17 Procedure Date: 12/23/17 Planned Procedure: Application of external fixator left leg Pre-Op Diagnosis: Pilon fracture left ankle Procedure Performed: Preop dx: Pilon fracture left ankle Post op krista: Pilon fracture left ankle Procedure: Application of external fixator left ankle Surgeon: Dave [employer] Assistant : None Drains: None EBL 5 cc Anesthesia General Complications: None Operative procedure in detail: The patient was taken to the operating room and positioned in the supine position. After general anesthesia was induced his leg was prepped and draped in the usual sterile fashion. The components of the fixator were assembled. Two pins were inserted into the crest of the tibia and the fixator was assembled. The heel pin was then drilled through the patients heel. The fixator was assembled using the pin to bar clickers and the kickstand was then put into place to protect the patient's heel. There was a small fracture blister over the anterior aspect of the patient's ankle. A sterile dressing was put into place after the flouro showed anatomic alignment of the fracture fragments. The patient was then awakened and returned to the rr in stable condition. At the end of the procedure all sponge and needle counts were correct x 2. There were no complications. - Procedure Note Primary Surgeon: Dave Anesthesia Technique: General ET tube IV Fluids (mL): 500 Estimated Blood Loss (mL): 5 Urine Output (mL): 200 Complications: none ABX Reporting Has patient been on IV antibiotics over the past 48 hours?: No Assessment/Plan - Problem List (1) Left trimalleolar fracture Impression: Patient's fracture was repaired by Dr. Acosta today. There were no complications noted. He is comfortable, and denies any significant pain at this time. (2) Post traumatic stress disorder (PTSD) Impression: Apparently severe, we will continue the patient on gabapentin, propanolol, Seroquel, and Zoloft. No new complaints since he has been in the hospital. (3) Hypercholesterolemia Impression: We have continued the patient on simvastatin. (4) GERD (gastroesophageal reflux disease) Impression: We have continued the patient on omeprazole. (5) Chronic pain Impression: The patient's pain is well controlled at this time. We will continue him on gabapentin and oxycodone as needed. (6) Benign prostatic hyperplasia Impression: We have continued the patient's Tamsulosin.
[2017-12-23] MEDS: ATORVASTATIN 10 MG TABLET PO SCH (20:53)
[2017-12-23] MEDS: QUEtiapine 100 MG TABLET PO SCH (20:54)
[2017-12-23] MEDS: PRAZOSIN 1 MG CAPSULE PO SCH (20:54)
[2017-12-23] MEDS: TEMAZEPAM 15 MG CAPSULE PO PRN (20:54)
[2017-12-23] MEDS: TAMSULOSIN 0.4 MG CAPSULE PO SCH (21:01)
[2017-12-23] MEDS ORDERED: CARBOXYMETHYLCELLULOSE OPHTH DROPS EACHEYE PRN (21:02)
[2017-12-24] MEDS: MORPHINE 2 MG/ML SYRINGE IVP PRN ×6 (03:42→21:30)
[2017-12-24 06:11] LABS: MEAN CORPUSCULAR HEMOGLOBIN 31.2 pg (27.0-31.0); MEAN CORPUSCULAR HGB CONC 33.8 g/dL (32.0-36.0); MEAN CORPUSCULAR VOLUME 92.3 fL (80.0-94.0); MEAN PLATELET VOLUME 7.4 fL (7.4-11.4); RED BLOOD COUNT 3.51 10^6/uL (4.70-6.10); RED CELL DISTRIBUTION WIDTH 14.1 % (12.0-15.0); WHITE BLOOD COUNT 5.9 x10^3/uL (4.8-10.8)
[2017-12-24] MEDS: PANTOPRAZOLE 40 MG TABLET PO SCH (06:13)
[2017-12-24] MEDS: GABAPENTIN 300 MG CAPSULE PO SCH ×3 (06:13→21:35)
[2017-12-24] MEDS: oxyCODONE 5 MG TABLET PO PRN ×2 (06:14→16:10)
[2017-12-24 06:24] LABS: CREATININE 1.2 mg/dL (0.6-1.2)
[2017-12-24] MEDS: DOCUSATE SODIUM 250 MG CAPSULE PO SCH (08:55)
[2017-12-24] MEDS: MULTIVITAMIN W/MINERALS TABLET PO SCH (08:56)
[2017-12-24] MEDS: PSYLLIUM PACKET PO SCH (08:56)
[2017-12-24] MEDS: SERTRALINE 50 MG TABLET PO SCH (08:56)
[2017-12-24] MEDS: SODIUM CHLORIDE FLUSH 0.9% 10 ML SYRINGE IVP SCH ×4 (08:57→23:40)
[2017-12-24] MEDS: D5.45NS W/20 MEQ KCL 1,000 ML IV SCH ×3 (10:12→19:43)
--- NOTE | 2017-12-24 12:11 | PROVIDER PROGRESS NOTE ---
Subjective - Prog Note Date Prog Note Date: 12/24/17 Prog Note Time: 12:10 - Subjective Pt reports feeling: Improved (ankle is better) Objective - Vital Signs/Intake & Output Vital Signs: Vital Signs x48h Temp Pulse Resp BP Pulse Ox 12/24/17 07:58 36.9 C 96 18 113/64 92 Intake & Output: Intake & Output 12/21/17 12/22/17 12/23/17 12/24/17 23:59 23:59 23:59 23:59 Intake Total 260 3060.000 1440 Output Total 250 300 900 Balance 10 2760.000 540 - Objective General Appearance: positive: No acute distress Eyes Bilateral: positive: Normal inspection Extremities: positive: Non-tender, Other (External fixator in place. toes pink. Good sensation.) - Lab Results Fish Bones: 12/24/17 05:40 12/24/17 05:40 Other Labs: Lab Results x24hrs 12/24/17 12/24/17 Range/Units 05:40 05:40 WBC 5.9 (4.8-10.8) x10^3/uL RBC 3.51 L (4.70-6.10) 10^6/uL Hgb 11.0 L (14.0-18.0) g/dL Hct 32.4 L (42.0-52.0) % MCV 92.3 (80.0-94.0) fL MCH 31.2 H (27.0-31.0) pg MCHC 33.8 (32.0-36.0) g/dL RDW 14.1 (12.0-15.0) % Plt Count 149 (130-450) 10^3/uL MPV 7.4 (7.4-11.4) fL Sodium 131 L (135-145) mmol/L Potassium 3.9 (3.5-5.0) mmol/L Chloride 99 L (101-111) mmol/L Carbon Dioxide 27 (21-32) mmol/L Anion Gap 5.0 L (6-13) BUN 14 (6-20) mg/dL Creatinine 1.2 (0.6-1.2) mg/dL Estimated GFR (MDRD) 60 L (>89) Glucose 113 H (70-100) mg/dL Calcium 8.0 L (8.5-10.3) mg/dL Assessment/Plan - Problem List (1) Left trimalleolar fracture Impression: Pt comfortable with plan. We will discharge him [facility]. Touch down weight bearing. Xrays on return. He will return if he worsens. Qualifiers: Encounter type: subsequent encounter Fracture type: closed Fracture healing: with routine healing Qualified Code(s): S82.852D - Displaced trimalleolar fracture of left lower leg, subsequent encounter for closed fracture with routine healing
--- NOTE | 2017-12-24 13:41 | PROVIDER PROGRESS NOTE ---
Subjective - Prog Note Date Prog Note Date: 12/24/17 Prog Note Time: 12:00 - Subjective Pt reports feeling: Improved (The patient says he feels better. He denies any fever, chills, shortness of breath, or chest pain. He has pain to his left ankle and says that the pain has not been completely controlled.) Current Medications - Current Medications Current Medications: Active Medications Generic Name Dose Route Start Last Admin Trade Name Freq PRN Reason Stop Dose Admin Acetaminophen 650 mg 12/22/17 13:49 12/23/17 01:25 Tylenol PO 650 mg Q4HR PRN Administration Pain 1 to 4 Atorvastatin Calcium 10 mg 12/22/17 21:00 12/23/17 20:53 Lipitor PO 10 mg QPM FOZIA Administration Carboxymethylcellulose 1 drops 12/23/17 21:02 12/23/17 22:47 Refresh 1% Ophth Drops EACHEYE 1 drops PRN PRN Administration Dry Eye Docusate Sodium 250 - 500 mg 12/24/17 09:00 12/24/17 08:55 Colace 250mg Capsule PO 250 mg DAILY FOZIA Administration Gabapentin 900 mg 12/22/17 22:00 12/24/17 13:02 Neurontin PO 900 mg TID FOZIA Administration Potassium Chloride/Dextrose/Sod Cl 1,000 mls @ 100 mls/hr 12/22/17 14:00 05/03 13:29 D5.45ns W/20 Meq Kcl IV 100 mls/hr .Q10H FOZIA Administration Morphine Sulfate 2 mg 12/22/17 13:49 12/24/17 13:02 Morphine IVP 2 mg Q2H PRN Administration Pain 8 to 10 Multivitamins/Minerals 1 tab 12/23/17 09:00 12/24/17 08:56 Theragran M PO 1 tab DAILY FOZIA Administration Oxycodone HCl 5 mg 12/22/17 13:49 12/24/17 06:14 Roxicodone PO 5 mg Q4HR PRN Administration Pain 5 to 7 Pantoprazole Sodium 40 mg 12/23/17 07:00 12/24/17 06:13 Protonix PO 40 mg QDAC FOZIA Administration Polyethylene Glycol 17 gm 12/22/17 15:30 Miralax PO BID PRN Constipation Prazosin HCl 8 mg 12/22/17 21:00 12/23/17 20:54 Minipress PO 8 mg QPM FOZIA Administration Prochlorperazine Edisylate 10 mg 12/22/17 13:49 Compazine Inj IVP Q6HR PRN Nausea / Vomiting Propranolol HCl 20 mg 12/22/17 15:30 Inderal PO TID PRN Anxiety Psyllium Hydrophilic Mucilloid 1 packet 12/23/17 09:00 12/24/17 08:56 Metamucil PO 1 packet DAILY FOZIA Administration Quetiapine Fumarate 400 mg 12/22/17 21:00 12/23/17 20:54 Seroquel PO 400 mg QPM FOZIA Administration Sertraline HCl 200 mg 12/23/17 09:00 12/24/17 08:56 Zoloft PO 200 mg DAILY FOZIA Administration Sodium Chloride 10 ml 12/22/17 13:49 12/23/17 04:13 Normal Saline Flush 0.9% IVP 10 ml PRN PRN Administration NEEDED PER PROVIDER ORDERS Sodium Chloride 10 ml 12/22/17 17:00 12/24/17 08:57 Normal Saline Flush 0.9% IVP Not Given 0100,0900,1700 FOZIA Tamsulosin HCl 0.4 mg 12/22/17 21:00 12/23/17 21:01 Flomax PO 0.4 mg QPM FOZIA Administration Temazepam 15 mg 12/22/17 13:49 12/23/17 20:54 Restoril PO 15 mg QPM PRN Administration Insomnia Omeprazole [PriLOSEC] 20 mg PO QDAC 04/02/15 Prazosin [Minipress] 8 mg PO QPM 04/02/15 Quetiapine Fumarate 400 mg PO QPM 04/02/15 Sertraline HCl 200 mg PO DAILY 04/02/15 Gabapentin 900 mg PO TID 12/22/17 Multivitamin W/Minerals [Theragran M] 1 tab PO DAILY 12/22/17 Oxycodone HCl 5 mg PO Q4H PRN 12/22/17 Polyethylene Glycol 3350 [Miralax] 17 gm PO BID PRN 12/22/17 Propranolol HCl 20 mg PO TID PRN 12/22/17 Psyllium [Metamucil] 1 pkt PO DAILY 12/22/17 Simvastatin 20 mg PO QPM 12/22/17 Tamsulosin [Flomax] 0.4 mg PO QPM 12/22/17 Objective - Vital Signs/Intake & Output Reviewed Vital Signs: Yes Vital Signs: Vital Signs x48h Temp Pulse Resp BP Pulse Ox 12/24/17 07:58 36.9 C 96 18 113/64 92 Intake & Output: Intake & Output 12/21/17 12/22/17 12/23/17 12/24/17 23:59 23:59 23:59 23:59 Intake Total 260 3060.000 1790 Output Total 250 300 900 Balance 10 2760.000 890 - Objective General Appearance: positive: No acute distress, Alert Eyes Bilateral: positive: Normal inspection, PERRL, EOMI, No lid inflammation, Conjunctivae nml, No scleral icterus ENT: positive: ENT inspection nml, Pharynx nml, No signs of dehydration Neck: positive: Nml inspection, Thyroid nml, No JVD, Trachea midline. negative : Thyromegaly Respiratory: positive: Chest non-tender, No respiratory distress, Breath sounds nml. negative: Wheezes, Rales, Rhonchi Cardiovascular: positive: Regular rate & rhythm, No murmur, No gallop Abdomen: positive: Non-tender, No organomegaly, Nml bowel sounds, No distention. negative: Guarding, Rebound Back: positive: Nml inspection. negative: CVA tenderness (R), CVA tenderness (L ) Skin: positive: Color nml, No rash, Warm, Dry. negative: Cyanosis Extremities: positive: Non-tender, Full ROM, Nml appearance, No pedal edema, Other (Patient's left foot and ankle have an external fixator applied. Toes are wrapped, capillary refill is good, sensation is good.) Neurologic/Psychiatric: positive: Oriented x3, CN's nml (2-12), Motor nml, Sensation nml - Lab Results Fish Bones: 12/24/17 05:40 12/24/17 05:40 Other Labs: Lab Results x24hrs 12/24/17 12/24/17 Range/Units 05:40 05:40 WBC 5.9 (4.8-10.8) x10^3/uL RBC 3.51 L (4.70-6.10) 10^6/uL Hgb 11.0 L (14.0-18.0) g/dL Hct 32.4 L (42.0-52.0) % MCV 92.3 (80.0-94.0) fL MCH 31.2 H (27.0-31.0) pg MCHC 33.8 (32.0-36.0) g/dL RDW 14.1 (12.0-15.0) % Plt Count 149 (130-450) 10^3/uL MPV 7.4 (7.4-11.4) fL Sodium 131 L (135-145) mmol/L Potassium 3.9 (3.5-5.0) mmol/L Chloride 99 L (101-111) mmol/L Carbon Dioxide 27 (21-32) mmol/L Anion Gap 5.0 L (6-13) BUN 14 (6-20) mg/dL Creatinine 1.2 (0.6-1.2) mg/dL Estimated GFR (MDRD) 60 L (>89) Glucose 113 H (70-100) mg/dL Calcium 8.0 L (8.5-10.3) mg/dL - Diagnostic Imaging Diagnostic Imaging Results: positive: Final report reviewed Diagnostic Imaging Comments: EXAM: LEFT ANKLE RADIOGRAPHY EXAM DATE: 12/22/2017 12:31 PM. CLINICAL HISTORY: Left ankle pain after fall today. COMPARISON: None. TECHNIQUE: 3 views. FINDINGS: Bones: Acute fracture coronal plane posterior tibial lip, 6 mm from the cortex. Acute transverse fracture medial malleolus, 12 mm inferior to the talar dome, 8 mm from the tip. Acute comminuted mildly displaced spiral fracture lateral malleolus, extending from the talar dome superiorly by 4 cm. Suspect remote fracture in this region as well. Joints: Mild widening of the ankle mortise. Small effusion. 5 mm medial subluxation coronal plane distal tibia relative to the talar dome. Remote arthrodesis first MTP joint. Soft Tissues: Moderate diffuse edema. IMPRESSION: 1. Trimalleolar fracture with 5 mm medial offset distal tibia relative to the talar dome. 2. Small ankle effusion. EXAM: LEFT KNEE CT WITHOUT CONTRAST EXAM DATE: 12/22/2017 02:55 PM. CLINICAL HISTORY: Trimalleolar fracture left ankle. COMPARISON: 12/22/2017. TECHNIQUE: Thin-section axial images were acquired of the knee without contrast. Post-processing: Coronal and sagittal reformats. Other: None. In accordance with CT protocol optimization, one or more of the following dose reduction techniques were utilized for this exam: automated exposure control, adjustment of mA and/or KV based on patient size, or use of iterative reconstructive technique. FINDINGS: Bones: There is an oblique fracture of the fibula extending to the distal radioulnar joint. There is minimal lateral displacement of the distal fracture fragment. There is a minimally displaced transverse fracture of the medial malleolus with intraarticular extension. There are fractures of the lateral margins of the tibial plafond, anteriorly and posteriorly at the attachments of the anterior and posterior tibiofibular ligaments. The findings are consistent with avulsion injuries with intraarticular extensions. These create 3 mm gap deformities in the articular surface. There is mild lateral subluxation of the talus. There is a comminuted minimally displaced fracture of the base of the second metatarsal. There is an avulsion fracture between the base of the second metatarsal and the first tarsometatarsal joint, suggesting avulsion of the Lisfranc ligament. There is a smaller avulsion fracture of the medial aspect of the base of the fourth metatarsal. Joints: Hemarthrosis of the ankle. Musculature: Normal. No fatty atrophy. Other: Soft tissue swelling of the midfoot and hindfoot. IMPRESSION: 1. Fractures of the medial and lateral malleoli with intraarticular extension. Fractures of the anterior and posterior margins of the tibial plafond with intraarticular extension at the attachment points of the anterior and posterior tibiofibular ligaments. 2. Fracture of the base of the second metatarsal with an avulsion injury at the Lisfranc ligament attachment. 3. Avulsion injury of the medial margin of the fourth metatarsal base. EXAM: LEFT ANKLE RADIOGRAPHY EXAM DATE: 12/23/2017 10:57 AM. CLINICAL HISTORY: ORIF LEFT ANKLE. COMPARISON: 12/22/2017. TECHNIQUE: 3 views. FINDINGS: Distal fibular metadiaphyseal fracture and inferior malleoli or fracture. Posterior malleolar fracture seen on prior exam not well-visualized on current spot films. 3 digital spot films are submitted from intraoperative assessment for ORIF. Screws for external fixation are seen in lower leg and tarsal region. IMPRESSION: 3 digital spot films/films for intraoperative guidance of ankle fixation. For further discussion please see operative report. - Other Results/Comments Other Results/Comments: Surgery Operative Report Patient Name: MALAIKA ROMAN Date of : 1950 Patient Status: Inpatient Attending Provider: Breanna Barnes Date: 12/23/17 10:43 Initialization Date: 12/23/17 10:43 Operative Report - General Admit Date: 12/22/17 Procedure Date: 12/23/17 Planned Procedure: Application of external fixator left leg Pre-Op Diagnosis: Pilon fracture left ankle Procedure Performed: Preop dx: Pilon fracture left ankle Post op krista: Pilon fracture left ankle Procedure: Application of external fixator left ankle Surgeon: Dave Drywall Finishing Foreman : None Drains: None EBL 5 cc Anesthesia General Complications: None Operative procedure in detail: The patient was taken to the operating room and positioned in the supine position. After general anesthesia was induced his leg was prepped and draped in the usual sterile fashion. The components of the fixator were assembled. Two pins were inserted into the crest of the tibia and the fixator was assembled. The heel pin was then drilled through the patients heel. The fixator was assembled using the pin to bar clickers and the kickstand was then put into place to protect the patient's heel. There was a small fracture blister over the anterior aspect of the patient's ankle. A sterile dressing was put into place after the flouro showed anatomic alignment of the fracture fragments. The patient was then awakened and returned to the rr in stable condition. At the end of the procedure all sponge and needle counts were correct x 2. There were no complications. - Procedure Note Primary Surgeon: Dave Anesthesia Technique: General ET tube IV Fluids (mL): 500 Estimated Blood Loss (mL): 5 Urine Output (mL): 200 Complications: none ABX Reporting Has patient been on IV antibiotics over the past 48 hours?: No Assessment/Plan - Problem List (1) Left trimalleolar fracture Impression: Patient's fracture was repaired by Dr. Acosta yesterday. There were no complications noted. He is comfortable, and denies any significant pain at this time. Qualifiers: Encounter type: subsequent encounter Fracture type: closed Fracture healing: with routine healing Qualified Code(s): S82.852D - Displaced trimalleolar fracture of left lower leg, subsequent encounter for closed fracture with routine healing (2) Post traumatic stress disorder (PTSD) Impression: Apparently severe, we will continue the patient on gabapentin, propanolol, Seroquel, and Zoloft. No new complaints since he has been in the hospital. (3) Hypercholesterolemia Impression: We have continued the patient on simvastatin. (4) GERD (gastroesophageal reflux disease) Impression: We have continued the patient on omeprazole. (5) Chronic pain Impression: The patient's pain is well controlled at this time. We will continue him on gabapentin and oxycodone as needed. (6) Benign prostatic hyperplasia Impression: We have continued the patient's Tamsulosin.
[2017-12-24] MEDS: ACETAMINOPHEN 325 MG TABLET PO PRN (19:46)
[2017-12-24] MEDS: TAMSULOSIN 0.4 MG CAPSULE PO SCH (20:01)
[2017-12-24] MEDS: ATORVASTATIN 10 MG TABLET PO SCH (20:01)
[2017-12-24] MEDS: QUEtiapine 100 MG TABLET PO SCH (20:02)
[2017-12-24] MEDS: PRAZOSIN 1 MG CAPSULE PO SCH (20:03)
[2017-12-24] MEDS: SODIUM CHLORIDE FLUSH 0.9% 10 ML SYRINGE IVP PRN (21:31)
[2017-12-25] MEDS: D5.45NS W/20 MEQ KCL 1,000 ML IV SCH (05:43)
[2017-12-25] MEDS: oxyCODONE 5 MG TABLET PO PRN (05:43)
[2017-12-25] MEDS: GABAPENTIN 300 MG CAPSULE PO SCH (05:44)
[2017-12-25] MEDS: PANTOPRAZOLE 40 MG TABLET PO SCH (05:58)
[2017-12-25 06:16] LABS: HGB - HEMOGLOBIN 10.8 g/dL (14.0-18.0); MEAN CORPUSCULAR HEMOGLOBIN 31.2 pg (27.0-31.0); MEAN CORPUSCULAR HGB CONC 33.6 g/dL (32.0-36.0); MEAN CORPUSCULAR VOLUME 92.8 fL (80.0-94.0); RED BLOOD COUNT 3.48 10^6/uL (4.70-6.10); RED CELL DISTRIBUTION WIDTH 13.7 % (12.0-15.0); WHITE BLOOD COUNT 3.7 x10^3/uL (4.8-10.8)
[2017-12-25 06:26] LABS: CALCIUM 8.4 mg/dL (8.5-10.3); CREATININE 0.8 mg/dL (0.6-1.2)
[2017-12-25] MEDS: PSYLLIUM PACKET PO SCH (08:28)
[2017-12-25] MEDS: MORPHINE 2 MG/ML SYRINGE IVP PRN (08:28)
[2017-12-25] MEDS: SERTRALINE 50 MG TABLET PO SCH (08:29)
[2017-12-25] MEDS: MULTIVITAMIN W/MINERALS TABLET PO SCH (08:29)
[2017-12-25] MEDS: DOCUSATE SODIUM 250 MG CAPSULE PO SCH (08:29)
[2017-12-25] MEDS: SODIUM CHLORIDE FLUSH 0.9% 10 ML SYRINGE IVP PRN (08:30)
--- NOTE | 2017-12-25 10:51 | Discharge Plan ---
Discharge Plan Disposition: Home, Self Care Condition: Stable Prescriptions: oxyCODONE [Roxicodone] 5 mg PO Q4HR PRN #30 tablet PRN Reason: Pain 5 to 7 Diet: Regular Activity Restrictions: No Restrictions Shower Restrictions: No Driving Restrictions: No Weight Bearing: Partial Weight Additional Instructions or Follow Up instructions: Weight bearing as per physical therapy and Dr. Acosta. No Smoking: If you smoke, Please STOP! Call for help. Follow-up with: Provider,Other [Primary Care Provider] -
[2017-12-25 13:17] VITALS: BP 123/63
--- NOTE | 2017-12-25 13:19 | DISCHARGE SUMMARY ---
Discharge Summary Admit Date: 12/22/17 Discharge Date: 12/25/17 Discharging Provider: Breanna Barnes DO Primary Care Provider: None Code Status: Attempt Resuscitation Condition at Discharge: Stable Discharge Disposition: 01 Home, Self Care - DIAGNOSES Admission Diagnoses: 1. Left trimalleolar fracture 2. Posttraumatic stress disorder 3. Hypercholesterolemia 4. Gastroesophageal reflux disease 5. Chronic pain 6. Benign prostatic hyperplasia Discharge Diagnoses with Status of Each Condition: 1. Left trimalleolar fracture- Surgically repaired by Dr. Acosta 2 days ago, patient has an external fixator in place. He will be re-evaluated by Dr. Acosta in 1-2 weeks and may still need further internal fixation. 2. Posttraumatic stress disorder- Apparently severe, but well-managed. We will return the patient to his home medication dosing regimen. 3. Hypercholesterolemia - The patient will resume his home dosing of simvastatin 4. Gastroesophageal reflux disease - The patient will resume his home dosing of omeprazole 5. Chronic pain - Well-managed, we will resume the patient on his home dosing of oxycodone and gabapentin 6. Benign prostatic hyperplasia - We will resume the patient on his home dosing of tamsulosin - HPI History of Present Illness: Mr. 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 Since that time he has had episodes of syncope once or twice a year. Today the patient was walking through a doorway when he lost consciousness and fell, catching his foot in the doorway. When he woke up he realized that his foot was in a lot of pain and appeared to be deformed. He came to the emergency department where he was diagnosed with a left malleolar fracture. He will be admitted to medical surgical bed in anticipation of orthopedic surgery with Dr. Acosta tomorrow. - HOSPITAL COURSE Hospital Course: The patient was admitted to the hospital, given IV fluids and testing was done. He underwent surgery with Dr. Acosta approximately 24 hours later and has recovered well from that surgery. There was minimal blood loss and the patient has minimal new comorbidities for complaints. - ALLERGIES Allergies/Adverse Reactions: Allergies Allergy/AdvReac Type Severity Reaction Status Date / Time No Known Drug Allergies Allergy Verified 12/22/17 12:14 - MEDICATIONS Home Medications: Ambulatory Orders Medication Instructions Recorded Confirmed Omeprazole [PriLOSEC] 20 mg PO QDAC 04/02/15 12/22/17 Prazosin [Minipress] 8 mg PO QPM 04/02/15 12/22/17 Quetiapine Fumarate 400 mg PO QPM 04/02/15 12/22/17 Sertraline HCl 200 mg PO DAILY 04/02/15 12/22/17 Gabapentin 900 mg PO TID 12/22/17 12/22/17 Multivitamin W/Minerals [Theragran 1 tab PO DAILY 12/22/17 12/22/17 M] Oxycodone HCl 5 mg PO Q4H PRN 12/22/17 12/22/17 Polyethylene Glycol 3350 [Miralax] 17 gm PO BID PRN 12/22/17 12/22/17 Propranolol HCl 20 mg PO TID PRN 12/22/17 12/22/17 Psyllium [Metamucil] 1 pkt PO DAILY 12/22/17 12/22/17 Simvastatin 20 mg PO QPM 12/22/17 12/22/17 Tamsulosin [Flomax] 0.4 mg PO QPM 12/22/17 12/22/17 Acetaminophen [Tylenol] 650 mg PO Q4HR PRN tablet 12/25/17 Docusate Sodium 250Mg Capsule 250 - 500 mg PO DAILY capsule 12/25/17 [Colace 250Mg Capsule] oxyCODONE [Roxicodone] 5 mg PO Q4HR PRN #30 tablet 12/25/17 - PHYSICAL EXAM AT DISCHARGE General Appearance: positive: No acute distress, Alert Eyes Bilateral: positive: Normal inspection, PERRL, EOMI, No lid inflammation, Conjunctivae nml, No scleral icterus ENT: positive: ENT inspection nml, Pharynx nml, No signs of dehydration Neck: positive: Nml inspection, Thyroid nml, No JVD, Trachea midline, Thyromegaly Respiratory: positive: Chest non-tender, No respiratory distress, Breath sounds nml. negative: Wheezes, Rales, Rhonchi Cardiovascular: positive: Regular rate & rhythm, No murmur, No gallop Peripheral Pulses: positive: 1+ Abdomen: positive: Non-tender, No organomegaly, Nml bowel sounds, No distention. negative: Guarding, Rebound Back: positive: Nml inspection. negative: CVA tenderness (R), CVA tenderness (L ) Skin: positive: Color nml, No rash, Warm, Dry. negative: Cyanosis Extremities: positive: Non-tender, Full ROM, Nml appearance, No pedal edema, Joint swelling, Other (Left foot and ankle with an external fixation device in place) Neurologic/Psychiatric: positive: Oriented x3, CN's nml (2-12), Motor nml, Sensation nml, Mood/affect nml - LABS Result Diagrams: 12/25/17 05:57 12/25/17 05:57 - DIAGNOSTIC IMAGING Diagnostic Imaging Results: Final report reviewed Diagnostic Imaging Results Comments: EXAM: LEFT ANKLE RADIOGRAPHY EXAM DATE: 12/22/2017 12:31 PM. CLINICAL HISTORY: Left ankle pain after fall today. COMPARISON: None. TECHNIQUE: 3 views. FINDINGS: Bones: Acute fracture coronal plane posterior tibial lip, 6 mm from the cortex. Acute transverse fracture medial malleolus, 12 mm inferior to the talar dome, 8 mm from the tip. Acute comminuted mildly displaced spiral fracture lateral malleolus, extending from the talar dome superiorly by 4 cm. Suspect remote fracture in this region as well. Joints: Mild widening of the ankle mortise. Small effusion. 5 mm medial subluxation coronal plane distal tibia relative to the talar dome. Remote arthrodesis first MTP joint. Soft Tissues: Moderate diffuse edema. IMPRESSION: 1. Trimalleolar fracture with 5 mm medial offset distal tibia relative to the talar dome. 2. Small ankle effusion. EXAM: LEFT KNEE CT WITHOUT CONTRAST EXAM DATE: 12/22/2017 02:55 PM. CLINICAL HISTORY: Trimalleolar fracture left ankle. COMPARISON: 12/22/2017. TECHNIQUE: Thin-section axial images were acquired of the knee without contrast. Post-processing: Coronal and sagittal reformats. Other: None. In accordance with CT protocol optimization, one or more of the following dose reduction techniques were utilized for this exam: automated exposure control, adjustment of mA and/or KV based on patient size, or use of iterative reconstructive technique. FINDINGS: Bones: There is an oblique fracture of the fibula extending to the distal radioulnar joint. There is minimal lateral displacement of the distal fracture fragment. There is a minimally displaced transverse fracture of the medial malleolus with intraarticular extension. There are fractures of the lateral margins of the tibial plafond, anteriorly and posteriorly at the attachments of the anterior and posterior tibiofibular ligaments. The findings are consistent with avulsion injuries with intraarticular extensions. These create 3 mm gap deformities in the articular surface. There is mild lateral subluxation of the talus. There is a comminuted minimally displaced fracture of the base of the second metatarsal. There is an avulsion fracture between the base of the second metatarsal and the first tarsometatarsal joint, suggesting avulsion of the Lisfranc ligament. There is a smaller avulsion fracture of the medial aspect of the base of the fourth metatarsal. Joints: Hemarthrosis of the ankle. Musculature: Normal. No fatty atrophy. Other: Soft tissue swelling of the midfoot and hindfoot. IMPRESSION: 1. Fractures of the medial and lateral malleoli with intraarticular extension. Fractures of the anterior and posterior margins of the tibial plafond with intraarticular extension at the attachment points of the anterior and posterior tibiofibular ligaments. 2. Fracture of the base of the second metatarsal with an avulsion injury at the Lisfranc ligament attachment. 3. Avulsion injury of the medial margin of the fourth metatarsal base. - FOLLOW UP Follow Up: Follow-up with the primary care physician of your choice in the next week. - TIME SPENT Time Spent in Discharge (Minutes): 40
--- NOTE | 2018-01-28 09:47 | XRAY Report ---
C-ARM SERVICES: Fluoroscopy time only, no images submitted for interpretation. Fluoroscopy time 0 minutes, 4 seconds. RITIKA
== END 2017-12-25 12:57 | disposition home or self-care (01) | DRG 494 ==
LOC: ED 12:04 → MS2 13:49
PROVIDERS: ADMIT Hospitalist; ATTEND Hospitalist
PROC: 0QHH35Z Insertion of External Fixation Device into Left Tibia, Percutaneous Approach (ICD-10-PCS; principal; 2017-12-23 09:00)
DX: S82.852A Displaced trimalleolar fracture of left lower leg, initial encounter for closed fracture (principal); S92.322A Displaced fracture of second metatarsal bone, left foot, initial encounter for closed fracture; W19.XXXA Unspecified fall, initial encounter; X50.1XXA Overexertion from prolonged static or awkward postures, initial encounter; Y92.009 Unspecified place in unspecified non-institutional (private) residence as the place of occurrence of the external cause; R55 Syncope and collapse; F43.10 Post-traumatic stress disorder, unspecified; E78.00 Pure hypercholesterolemia, unspecified; K21.9 Gastro-esophageal reflux disease without esophagitis; I10 Essential (primary) hypertension; G62.9 Polyneuropathy, unspecified; G89.29 Other chronic pain; N40.0 Benign prostatic hyperplasia without lower urinary tract symptoms; Z79.899 Other long term (current) drug therapy; Z79.891 Long term (current) use of opiate analgesic; Z86.011 Personal history of benign neoplasm of the brain; E66.3 Overweight; Z68.35 Body mass index [BMI] 35.0-35.9, adult
CPT/HCPCS: 29515; 36415; 80048; 85027; 85610; 93005; 99283

== ENCOUNTER 2018-01-12 08:49 | Day surgery (SDC) | payer MEDICARE, OTHER ==
[2018-01-12] MEDS ORDERED: LACTATED RINGERS 1,000 ML IV ONE (09:17)
[2018-01-12] MEDS ORDERED: GABAPENTIN 400 MG CAPSULE ONE (09:25)
[2018-01-12] MEDS ORDERED: ceFAZolin 2 GM/50 ML 2 GM/50 ML BAG IV ONE (09:26)
[2018-01-12] MEDS ORDERED: ACETAMINOPHEN 1,000 MG/100 ML 100 ML IV ONE (09:31)
[2018-01-12] MEDS ORDERED: ONDANSETRON 4 MG/2 ML VIAL IVP ONE (10:45)
[2018-01-12] MEDS ORDERED: DEXAMETHASONE 4 MG/ML VIAL IVP ONE (10:45)
[2018-01-12] MEDS ORDERED: PHENYLEPHRINE 50 MG/5 ML VIAL IV ONE (10:45)
[2018-01-12] MEDS ORDERED: ePHEDrine 50 MG/ML AMP IVP ONE (10:45)
[2018-01-12] MEDS ORDERED: fentaNYL 250 MCG/5 ML VIAL IVP ONE (10:45)
[2018-01-12] MEDS ORDERED: MIDAZOLAM 2 MG/2 ML VIAL IVP ONE (10:45)
[2018-01-12] MEDS ORDERED: KETOROLAC 30 MG/ML VIAL IVP ONE (10:45)
[2018-01-12] MEDS ORDERED: LIDOCAINE-MPF 2% 5 ML VIAL IM ONE (10:45)
[2018-01-12] MEDS ORDERED: PROPOFOL 200 MG/20 ML VIAL IVP ONE (10:45)
[2018-01-12] MEDS ORDERED: BUPIVACAINE 0.5%-EPI 1:200000 PF 30 ML VIAL ONE (10:55)
--- NOTE | 2018-01-12 11:13 | XRAY Report ---
Procedure Date: 01/12/2018 Accession Number: [id number] / [id number] Procedure: [place] - OR C-Arm Procedure CPT Code: FULL RESULT: EXAM: OR C-Arm Procedure DATE: 01/12/2018 10:58 AM CLINICAL HISTORY: fx left ankle See ankle film same day
[2018-01-12] MEDS: HYDROmorphone 1 MG/ML CARPUJECT ONE ×2 (11:52→12:10)
[2018-01-12] MEDS: fentaNYL 100 MCG/2 ML VIAL ONE ×2 (11:57→12:05)
--- NOTE | 2018-01-12 13:15 | OPERATIVE REPORT ---
DATE OF SERVICE: 01/12/2018 Physician: Kaylene Sinha MD PREOPERATIVE DIAGNOSIS: External fixator on the left leg and foot for an extremely swollen trimalleolar ankle fracture. SECONDARY DIAGNOSES: Closed 2nd metatarsal base fracture with Lisfranc injury. PROCEDURE PERFORMED: Removal of external fixator, irrigation and debridement of pin sites. IMAGING: With fluoroscopy for stability followed by dressing of wounds and application of a below-knee fiberglass cast. OPERATING SURGEON: Kalyene Sinha M.D. ANESTHESIA: General, Homero Girard. INDICATIONS FOR SURGERY: Patient is a 67-year-old male who, 3-1/2 weeks ago, underwent emergency treatment of a displaced trimalleolar ankle fracture on the left. An external fixator had beenapplied for stability, and the reduction gain was near anatomic. The patient has been followed by another provider until he presented this week to my office and under my care. The patient's fixator pins were becoming irritated, and it was felt the appropriate time to intervene for either operative fixation of his fracture or at a minimum removal of his fixator and casting of his occult previously ignored 2nd metatarsal base and Lisfranc injury. FINDINGS AT SURGERY: The patient under anesthesia had dismantling of the fixator. The calcaneal pin slid out of his calcaneus by hand in spite of being threaded in its midportion. The tibial pins were well fixed and removed. The calcaneal pin site was soupy, but not with gross purulence or surrounding erythema. There was fairly firm and rigid induration around the ankle and ankle stress revealed no instability or crepitus. Minimal change in position of the fracture was evident with C-arm fluoroscopy, and the patient's midfoot was stable on stress. Based on these evaluations, it was felt appropriate to manage this patient with casting and accept that he had a displaced minimal fragment of the inferior aspect of his medial malleolus and minimal mortise instability, weighed against any option of opening through indurated skin in a diabetic with early purulence of calcaneal pin site, so a non-ORIF approach was undertaken. DESCRIPTION OF OPERATIVE PROCEDURE: Patient was taken to the operating room. Under general anesthesia, surgical timeout was held. His leg was prepped with an initial prep, and the external fixator was removed and all pins removed manually. Following this , the leg was re-prepped and draped, and C-arm imaging had been accomplished with the findings noted above. After re-prep and drape, the ankle pin sites were flushed with sterile irrigation utilizing a very dilute Betadine solution followed by cleansing rinse of saline through each of the pin sites. The patient's tolerance of this was excellent. Stability was rechecked and was very stable. Pin sites were then covered with Xeroform gauze dressings, and a well- padded below-knee fiberglass cast was applied, placing the foot in slight inversion and inward rotation for further stability of the healing of the mortise. The patient was taken to the recovery room in stable condition. ESTIMATED BLOOD LOSS: Minimal. COMPLICATIONS: None. COUNTS: Sponge and needle counts correct. TD: 01/12/2018 12:05 RITIKA
[2018-01-12 13:33] VITALS: BP 155/93
--- NOTE | 2018-01-14 13:46 | XRAY Report ---
Procedure Date: 01/12/2018 Accession Number: [id number] / [id number] Procedure: XR - Ankle 2 View LT CPT Code: FULL RESULT: EXAM: Ankle 2 View LT DATE: 01/12/2018 10:58 AM CLINICAL HISTORY: C-arm for Lefk Ankle COMPARISON: 01/10/2018 TECHNIQUE: 4 intraoperative views. FINDINGS: Intraoperative imaging demonstrates removal of the external fixator. IMPRESSION: Intraoperative imaging of hardware removal. 4 seconds of fluoroscopy time was provided to Dr. Sinha; 4 spot images obtained. RADIA
== END 2018-01-12 08:50 | disposition home or self-care (01) ==
LOC: SDS 08:49
PROVIDERS: ATTEND Orthopaedic Surgery
PROC: 0YPBXYZ Removal of Other Device from Left Lower Extremity, External Approach (ICD-10-PCS; principal; 2018-01-12 10:00)
DX: T84.84XA Pain due to internal orthopedic prosthetic devices, implants and grafts, initial encounter (principal); S92.32 Fracture of second metatarsal bone
CPT/HCPCS: 20694; 73600; A9270; J0131; J0690; J1170; J3010; J7120

== ENCOUNTER 2019-05-08 09:33 | Outpatient (CLI) | payer OTHER ==
[2019-05-08 12:20] LABS: BASOPHILS % (AUTO) 0.9 %; EOSINOPHILS # (AUTO) 0.3 10^3/uL (0.0-0.7); EOSINOPHILS % (AUTO) 7.3 %; HGB - HEMOGLOBIN 12.3 g/dL (14.0-18.0); LYMPHOCYTES # (AUTO) 1.5 10^3/uL (1.5-3.5); LYMPHOCYTES % (AUTO) 35.8 %; MEAN CORPUSCULAR HEMOGLOBIN 30.8 pg (27.0-31.0); MEAN CORPUSCULAR HGB CONC 32.2 g/dL (32.0-36.0); MEAN CORPUSCULAR VOLUME 95.5 fL (80.0-94.0); MONOCYTES # (AUTO) 0.3 10^3/uL (0.0-1.0); MONOCYTES % (AUTO) 6.6 %; NEUTROPHILS # (AUTO) 2.1 10^3/uL (1.5-6.6); NEUTROPHILS % (AUTO) 48.9 %; PLT - PLATELET COUNT 169 10^3/uL (130-450); RED CELL DISTRIBUTION WIDTH 13.7 % (12.0-15.0); WHITE BLOOD COUNT 4.3 x10^3/uL (4.8-10.8)
[2019-05-08 12:39] LABS: ALBUMIN/GLOBULIN RATIO 1.2 (1.0-2.2); ALKALINE PHOSPHATASE 94 IU/L (42-121); ALT ALANINE AMINOTRANSFERASE 24 IU/L (10-60); AST ASPARTATE AMINOTRANSFERASE 21 IU/L (10-42); BILIRUBIN,TOTAL 0.4 mg/dL (0.2-1.0); BUN - BLOOD UREA NITROGEN 16 mg/dL (6-20); CALCIUM 8.9 mg/dL (8.5-10.3); CARBON DIOXIDE - CO2 30 mmol/L (21-32); CHLORIDE 101 mmol/L (101-111); CHOL/HDL RATIO 3.8 (<5.0); CHOLESTEROL 229 mg/dL; GFR - MDRD 74 (>89); GLUCOSE 107 mg/dL (70-100); HDL CHOLESTEROL 60 mg/dL; LDL CHOLESTEROL,CALCULATED 144 mg/dL; LDL/HDL RATIO 2.4 (<3.6); SODIUM 138 mmol/L (135-145); TOTAL PROTEIN 7.3 g/dL (6.7-8.2); VLDL CHOLESTEROL 25 mg/dL
== END 2019-05-08 23:59 | disposition home or self-care (01) ==
LOC: LAB.N 09:33
PROVIDERS: ATTEND Family Medicine
DX: Z00.00 Encounter for general adult medical examination without abnormal findings (principal)
CPT/HCPCS: 36415; 80053; 80061; 83721; 84443; 85025

== ENCOUNTER 2019-12-18 16:08 | Emergency (ER) | payer OTHER ==
[2019-12-18 17:11] LABS: BASOPHILS % (AUTO) 0.8 %; EOSINOPHILS # (AUTO) 0.2 10^3/uL (0.0-0.7); EOSINOPHILS % (AUTO) 4.5 %; HGB - HEMOGLOBIN 13.4 g/dL (14.0-18.0); LYMPHOCYTES # (AUTO) 1.7 10^3/uL (1.5-3.5); LYMPHOCYTES % (AUTO) 35.2 %; MEAN CORPUSCULAR HEMOGLOBIN 30.4 pg (27.0-31.0); MEAN CORPUSCULAR HGB CONC 32.5 g/dL (32.0-36.0); MEAN CORPUSCULAR VOLUME 93.4 fL (80.0-94.0); MEAN PLATELET VOLUME 8.5 fL (7.4-11.4); MONOCYTES # (AUTO) 0.3 10^3/uL (0.0-1.0); MONOCYTES % (AUTO) 5.7 %; NEUTROPHILS # (AUTO) 2.6 10^3/uL (1.5-6.6); NEUTROPHILS % (AUTO) 53.4 %; PLT - PLATELET COUNT 179 10^3/uL (130-450); RED BLOOD COUNT 4.41 10^6/uL (4.70-6.10); RED CELL DISTRIBUTION WIDTH 14.9 % (12.0-15.0); WHITE BLOOD COUNT 4.9 x10^3/uL (4.8-10.8)
[2019-12-18 17:16] LABS: PT - PROTHROMBIN TIME 11.8 secs (9.9-12.6)
[2019-12-18 17:23] LABS: ALBUMIN 4.2 g/dL (3.2-5.5); ALBUMIN/GLOBULIN RATIO 1.4 (1.0-2.2); BILIRUBIN,TOTAL 0.6 mg/dL (0.2-1.0); CALCIUM 8.9 mg/dL (8.5-10.3); CREATININE 1.3 mg/dL (0.6-1.2); TOTAL PROTEIN 7.3 g/dL (6.7-8.2)
[2019-12-18 17:24] LABS: PARTIAL THROMBOPLASTIN TIME 31.3 secs (24.9-33.3)
--- NOTE | 2019-12-18 17:26 | ED Physician Documentation ---
History of Present Illness - Stated complaint Stated Complaint: Swelling - Chief complaint Chief Complaint: General - History obtained from History obtained from: Patient, Family - History of Present Illness Timing: Other (last month) Pain level max: 0 Pain level now: 0 - Additonal information Additional information: 69 year old male presents to the ED for evaluation of 30 pound weight gain over the last month, increased urinary frequency, but reduced output with each void. Also noted that he has been getting progressively short of breath and now with leg swelling of both feet for the last week. no fevers, no cough. Reports that he began using a sleep apnea machine about a month ago and notices he has a loth of phlegm in the am per pt and his he has no hx of renal or liver disease, though a former heavy ETOH consumer. last drink 5 years ago. Pt denies hx of HTN or DM. he takes meds only related to mood and what sounds like prostate hypertrophy He underwent a penile implant last month to help with the difficulty urinating. This was done at [facility]. Meds: gabapentin, omeprazole, prazosin, seroquel, tamusolin, ambilify Review of Systems Constitutional: denies: Fever, Chills, Myalgias Nose: denies: Rhinorrhea / runny nose Cardiac: reports: Pedal edema. denies: Chest pain / pressure, Palpitations, Calf pain Respiratory: reports: Dyspnea, Cough. denies: Hemoptysis, Wheezing GI: reports: Abdominal Swelling. denies: Abdominal Pain, Nausea, Vomiting, Diarrhea : reports: Frequency, Other (reduced urianry output) Skin: denies: Rash, Lesions Musculoskeletal: denies: Neck pain, Back pain Psychiatric: reports: Anxiety, Other (PTSD) PD PAST MEDICAL HISTORY - Past Medical History Past Medical History: Yes Cardiovascular: Hypertension, High cholesterol Respiratory: Sleep apnea Neuro: Peripheral neuropathy, Other Endocrine/Autoimmune: None GI: GERD : Benign prostate hypertrophy HEENT: Chronic sinusitis Psych: Depression, Post traumatic stress disorder Musculoskeletal: None Derm: None - Past Surgical History Past Surgical History: Yes Ortho: Rotator cuff repair Neuro: Other HEENT: Rhinoplasty, Other - Present Medications Home Medications: Ambulatory Orders Medication Instructions Recorded Confirmed Omeprazole [PriLOSEC] 20 mg PO QDAC 04/02/15 01/11/18 Prazosin [Minipress] 8 mg PO QPM 04/02/15 01/11/18 Quetiapine Fumarate 400 mg PO QPM 04/02/15 01/11/18 Gabapentin 900 mg PO TID 12/22/17 01/11/18 Propranolol HCl 40 mg PO TID PRN 12/22/17 01/11/18 Psyllium [Metamucil] 1 pkt PO DAILY 12/22/17 01/11/18 Acetaminophen [Tylenol] 650 mg PO Q4HR PRN tablet 12/25/17 01/11/18 oxyCODONE [Roxicodone] 5 mg PO Q4HR PRN #30 tablet 12/25/17 01/11/18 Docusate Sodium 250Mg Capsule 250 - 500 mg PO DAILY PRN 01/11/18 01/11/18 [Colace 250Mg Capsule] Furosemide [Lasix] 20 mg PO DAILY #4 tablet 12/18/19 - Allergies Allergies/Adverse Reactions: Allergies Allergy/AdvReac Type Severity Reaction Status Date / Time No Known Drug Allergies Allergy Verified 12/18/19 16:17 - Social History Does the pt smoke?: No Smoking Status: Never smoker Does the pt drink ETOH?: Yes Does the pt have substance abuse?: No - Immunizations Immunizations are current?: Yes - POLST Patient has POLST: No POLST Status: Full Code PD ED PE NORMAL - General General: Alert and oriented X 3, No acute distress, Well developed/nourished - HEENT HEENT: Atraumatic, EOMI, Pharynx benign - Neck Neck: Supple, no meningeal sign, No adenopathy, No JVD - Cardiac Cardiac: Other (systolic murmur and difficult to obtain cardiac tones. 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, No motor deficit Results - Vitals Vitals: Vital Signs - 24 hr 12/18/19 12/18/19 12/18/19 16:13 16:17 17:05 Temperature 36.8 C Heart Rate 107 H 96 99 Respiratory 18 19 20 Rate Blood Pressure 149/96 H 169/114 H 150/89 H O2 Saturation 96 95 96 12/18/19 12/18/19 17:30 18:27 Temperature Heart Rate 97 89 Respiratory 14 17 Rate Blood Pressure 150/89 H 146/87 H O2 Saturation 95 96 Oxygen O2 Source Room air - EKG (time done) 1722 Rate: Rate (enter#) Rhythm: NSR [place]: Other Intervals: Normal VA QRS: LVH Ischemia: Normal ST segments, ST elevation c/w ischemia, ST elevation c/w repol, ST depression, Q waves, Hyperacute T waves, T wave inversion, Non specific changes, Other Compare to prior EKG: Old EKG unavailable Computer interpretation: Agree with computer - Labs Labs: Laboratory Tests 12/18/19 12/18/19 12/18/19 16:35 17:03 17:03 WBC 4.9 RBC 4.41 L Hgb 13.4 L Hct 41.2 L MCV 93.4 MCH 30.4 MCHC 32.5 RDW 14.9 Plt Count 179 MPV 8.5 Neut # (Auto) 2.6 Lymph # (Auto) 1.7 King # (Auto) 0.3 Eos # (Auto) 0.2 Baso # (Auto) 0.0 Absolute Nucleated RBC 0.00 Nucleated RBC % 0.0 PT INR APTT D-Dimer < 200.0 L Sodium Potassium Chloride Carbon Dioxide Anion Gap BUN Creatinine Estimated GFR (MDRD) Glucose Calcium Total Bilirubin AST ALT Alkaline Phosphatase Troponin I High Sens B-Natriuretic Peptide Total Protein Albumin Globulin Albumin/Globulin Ratio Lipase TSH 3.84 12/18/19 12/18/19 12/18/19 17:03 17:03 17:03 WBC RBC Hgb Hct MCV MCH MCHC RDW Plt Count MPV Neut # (Auto) Lymph # (Auto) King # (Auto) Eos # (Auto) Baso # (Auto) Absolute Nucleated RBC Nucleated RBC % PT 11.8 INR 1.0 APTT 31.3 D-Dimer Sodium 137 Potassium 4.3 Chloride 103 Carbon Dioxide 24 Anion Gap 10.0 BUN 16 Creatinine 1.3 H Estimated GFR (MDRD) 55 L Glucose 106 H Calcium 8.9 Total Bilirubin 0.6 AST 35 ALT 54 Alkaline Phosphatase 91 Troponin I High Sens B-Natriuretic Peptide 31 Total Protein 7.3 Albumin 4.2 Globulin 3.1 Albumin/Globulin Ratio 1.4 Lipase 25 TSH 12/18/19 17:03 WBC RBC Hgb Hct MCV MCH MCHC RDW Plt Count MPV Neut # (Auto) Lymph # (Auto) King # (Auto) Eos # (Auto) Baso # (Auto) Absolute Nucleated RBC Nucleated RBC % PT INR APTT D-Dimer Sodium Potassium Chloride Carbon Dioxide Anion Gap BUN Creatinine Estimated GFR (MDRD) Glucose Calcium Total Bilirubin AST ALT Alkaline Phosphatase Troponin I High Sens 3.5 B-Natriuretic Peptide Total Protein Albumin Globulin Albumin/Globulin Ratio Lipase TSH - Rads (name of study) cxr Radiology: Final report received (no acute pathology) Procedures - General procedure General procedure: limited bedside ultrasound completed with Dr. De La O. no e/o abnormal fluid collection around Puente pouch or in the abdomen. no ascites appreciated PD MEDICAL DECISION MAKING - ED course Complexity details: reviewed results, re-evaluated patient, considered differential, d/w patient, d/w family ED course: 69 year old male presents with dyspnea, abdominal and leg swelling and 30 pound weight gain over the last month - ddx includes but not limited to Kidney injury, cirrhosis, CHF, [place], nephrotic syndrome - CXR without acute pathology, normal BNP, no crackles; doubt chf - ECG non ischemic; negative troponin, doubt acs - normal lft and no fluid in abdomen on limited bedside ultrasound; no e/o ascites - Renal function showed 1.3 Cr, but unsure baseline; mild renal insufficiency but no e/o jody . UA unremarkable. no proteinuria; no evidence to suggest nephrotic syndrome - pt needs close f/u with pcp Dr. De La Cruz; recommend daily weight and BP measurments. Also will give 7 days of lasix 10 mg for mild edema in the lower legs Departure - Departure Disposition: 01 Home, Self Care Clinical Impression: Edema of both feet, Renal insufficiency, mild, Weight gain Condition: Stable Record reviewed to determine appropriate education?: Yes Follow-Up: ELFEGO DE LA CRUZ ARNP [Physician No Access] - Within 1 week Prescriptions: Furosemide [Lasix] 20 mg PO DAILY #4 tablet Comments: James your labs look essentially normal with the exception of a mild creatinine elevation (1.3). Your chest xray, ecg and vitals have all been normal here. You are not in liver failure. You do not appear to be in hear failure please see Dr. De La Cruz in follow up this week. If you have worsening symptoms, return immediately to the ED I have ordered a water pill called lasix. take once daily for 4 days. this will make you pee more, so take in in the morning
--- NOTE | 2019-12-18 17:30 | XRAY Report ---
Reason: cough Procedure Date: 12/18/2019 Accession Number: [id number] / [id number] Procedure: XR - Chest 2 View X-Ray CPT Code: 81416 Final Report FULL RESULT: PROCEDURE: Chest 2 View X-Ray INDICATIONS: cough TECHNIQUE: 2 view(s) of the chest. COMPARISON: CT chest 04/02/2015. FINDINGS: Surgical changes and devices: None. Lungs and pleura: No pleural effusions or pneumothorax. Lungs are clear. Mediastinum: Mediastinal contours are normal. Atherosclerotic calcifications in the aortic arch. Heart size is normal. Bones and chest wall: No suspicious bony abnormalities. Thoracic spine degenerative disc changes. Soft tissues appear unremarkable. IMPRESSION: No acute cardiopulmonary disease process. Reviewed by: Marilin Escamilla MD, PhD on 12/18/2019 5:29 PM PDT Approved by: Mrailin Escamilla MD, PhD on 12/18/2019 5:29 PM PDT Station ID: [id number]
[2019-12-18 19:13] LABS: BILIRUBIN,URINE NEGATIVE (NEGATIVE); GLUCOSE, URINE (UA) NEGATIVE (NEGATIVE); KETONES,URINE (UA) NEGATIVE (NEGATIVE); LEUKOCYTE ESTERASE, URINE NEGATIVE (NEGATIVE); NITRITE,URINE NEGATIVE (NEGATIVE); OCCULT BLOOD,URINE NEGATIVE (NEGATIVE); PH,URINE 5.5 PH (5.0-7.5); PROTEIN,URINE NEGATIVE (NEGATIVE); UROBILINOGEN,URINE 0.2 (NORMAL) E.U./dL (NORMAL)
[2019-12-18 19:14] LABS: CLARITY,URINE CLEAR (CLEAR)
[2019-12-18 19:41] VITALS: BP 144/94
== END 2019-12-18 19:41 | disposition home or self-care (01) ==
LOC: ED 16:08
DX: R60.0 Localized edema (principal); N28.9 Disorder of kidney and ureter, unspecified; R63.5 Abnormal weight gain; I10 Essential (primary) hypertension; N40.1 Benign prostatic hyperplasia with lower urinary tract symptoms; R35.0 Frequency of micturition; G47.30 Sleep apnea, unspecified; R01.1 Cardiac murmur, unspecified
CPT/HCPCS: 36415; 51798; 71046; 80053; 81001; 81003; 83690; 83880; 84443; 84484; 85025; 85379; 85610; 85730; 87086; 93005; 99284

== ENCOUNTER 2019-12-27 09:18 | Outpatient (CLI) | payer OTHER ==
[2019-12-27 12:29] LABS: ALBUMIN 4.4 g/dL (3.2-5.5); ALBUMIN/GLOBULIN RATIO 1.3 (1.0-2.2); BILIRUBIN,TOTAL 0.7 mg/dL (0.2-1.0); CALCIUM 8.9 mg/dL (8.5-10.3); CREATININE 1.3 mg/dL (0.6-1.2); TOTAL PROTEIN 7.7 g/dL (6.7-8.2)
== END 2019-12-27 23:59 | disposition home or self-care (01) ==
LOC: LAB.WCP 09:18
PROVIDERS: ATTEND Family Medicine
DX: N28.9 Disorder of kidney and ureter, unspecified (principal)
CPT/HCPCS: 36415; 80053

== ENCOUNTER 2021-04-30 12:24 | Outpatient (CLI) | payer OTHER | END 2021-04-30 12:25 | disposition short-term general hospital (02) | LOC: EMS 12:24 | DX: R41.82 Altered mental status, unspecified (principal); R32 Unspecified urinary incontinence | CPT/HCPCS: A0425; A0429 ==

== ENCOUNTER 2021-05-21 11:45 | Outpatient (CLI) | payer OTHER ==
[2021-05-21 12:08] LABS: CALCIUM 9.1 mg/dL (8.5-10.3); CREATININE 1.4 mg/dL (0.6-1.2)
== END 2021-05-21 11:46 | disposition home or self-care (01) ==
LOC: LAB 11:45 → LAB.R 11:46
PROVIDERS: ATTEND Nurse Practitioner
DX: A41.9 Sepsis, unspecified organism (principal)
CPT/HCPCS: 80048

== ENCOUNTER 2022-09-04 21:29 | Outpatient (CLI) | payer MEDICARE | END 2022-09-04 23:59 | disposition EMS.NT | LOC: EMS 21:29 | DX: R06.00 Dyspnea, unspecified (principal); R20.2 Paresthesia of skin; R52 Pain, unspecified ==

== ENCOUNTER 2022-11-20 19:59 | Outpatient (CLI) | payer MEDICARE | END 2022-11-20 23:59 | disposition short-term general hospital (02) | LOC: EMS 19:59 | DX: M25.552 Pain in left hip (principal); M79.652 Pain in left thigh; W18.39XA Other fall on same level, initial encounter; Y92.003 Bedroom of unspecified non-institutional (private) residence as the place of occurrence of the external cause; R03.1 Nonspecific low blood-pressure reading; Z96.643 Presence of artificial hip joint, bilateral | CPT/HCPCS: A0425; A0427 ==